=== PATIENT | male | born 1980 | race Caucasian/White ===

== ENCOUNTER 2016-11-08 10:45 | Emergency (ER) | payer OTHER ==
[2016-11-08 10:59] VITALS: BP 139/90; PULSE 92; RESP 20; TEMP 98
--- NOTE | 2016-11-08 11:40 | ED ---
Upper Extremity HPI - General Chief Complaint: Extremity Injury, Upper Stated Complaint: hand pain,fall Time Seen by Provider: 11/08/16 11:14 Source: patient, RN notes reviewed Mode of arrival: ambulatory Limitations: no limitations - History of Present Illness Initial Comments: 36-year-old male presents emergency Department chief complaint of right hand pain. Patient states his fell last night. Patient states he has right hand pain and [id number]. Patient denies any other injuries. Denies any head injury, LOC. Patient states she's had no prior fractures. Patient offers no complains. Place: home - Related Data Home Medications Medication Instructions Recorded Confirmed Albuterol Inhaler [Ventolin Hfa 1 - 2 puff INHALATION RT-Q6H PRN 06/21/16 Inhaler] amLODIPine [Norvasc] 10 mg PO DAILY 06/21/16 06/21/16 Previous Rx's Medication Instructions Recorded Famotidine [Pepcid] 20 mg PO DAILY #30 tablet 06/21/16 Hydrocodone/Acetaminophen [[place] 1 each PO Q6HR PRN #10 tab 06/21/16 5-325] Ondansetron Odt [Zofran ODT] 4 mg PO Q8HR PRN #5 tab 06/21/16 chlordiazePOXIDE HCl [Librium] 25 mg PO QID #20 capsule 06/21/16 Allergies Allergy/AdvReac Type Severity Reaction Status Date / Time No Known Allergies Allergy Verified 11/08/16 10:59 Review of Systems ROS Statement: Those systems with pertinent positive or pertinent negative responses have been documented in the HPI. ROS Other: All systems not noted in ROS Statement are negative. Past Medical History Past Medical History: Asthma, Hypertension History of Any Multi-Drug Resistant Organisms: None Reported Past Surgical History: No Surgical Hx Reported Past Psychological History: No Psychological Hx Reported Smoking Status: Current every day smoker Past Alcohol Use History: Occasional Past Drug Use History: Marijuana General Exam Limitations: no limitations General appearance: alert, in no apparent distress Head exam: Present: atraumatic, normocephalic, normal inspection Respiratory exam: Present: normal lung sounds bilaterally. Absent: respiratory distress, wheezes, rales, rhonchi, stridor Cardiovascular Exam: Present: regular rate, normal rhythm, normal heart sounds. Absent: systolic murmur, diastolic murmur, rubs, gallop, clicks Extremities exam: Present: other (Right hand there is moderate swelling, tenderness palpation, neurovascular intact there is no forearm tenderness.) Course Vital Signs 11/08/16 10:57 Temperature 98.0 F Pulse Rate 92 Respiratory 20 Rate Blood Pressure 139/90 O2 Sat by Pulse 98 Oximetry Procedures - Orthopedic Splinting/Casting Injury #1 Side: right Upper Extremity Injury Location: hand Upper Extremity Immobilizer: volar splint (Short neurovascular intact before and after procedure) Medical Decision Making - Medical Decision Making 36-year-old male presented for right hand pain. Patient has fracture at the base of fifth metacarpal. Patient will be splinted, follow-up with orthopedics on-call. Return parameters were discussed. Disposition Clinical Impression: Right hand fracture Disposition: HOME SELF-CARE Condition: Stable Instructions: Hand Fracture (ED) Additional Instructions: Please return to the Emergency Department if symptoms worsen or any other concerns. Referrals: None,Stated [Primary Care Provider] - 1-2 days Angelica Kelley DO [Doctor of Osteopathic Medicine] - 1-2 days Time of Disposition: 11:51
--- NOTE | 2016-11-08 11:53 | XR ---
EXAMINATION TYPE: XR hand complete RT DATE OF EXAM: 11/08/2016 11:47 AM CLINICAL HISTORY: Fall injury with pain. TECHNIQUE: Frontal, lateral and oblique images of the right hand are obtained. COMPARISON: None. FINDINGS: Incomplete extension of phalanges is noted making evaluation slightly suboptimal seen best on frontal and oblique images there is nondisplaced comminuted intra-articular fracture base of fifth metacarpal. The joint spaces in the right hand appear within normal limits. The overlying soft tiss ue appears unremarkable. IMPRESSION: There is acute comminuted nondisplaced intra-articular fracture base of fifth metacarpal . (Initial encounter close type post traumatic fracture)
[2016-11-08] MEDS ORDERED: IBUPROFEN 600 MG TAB PO STA (12:11)
== END 2016-11-08 12:20 | disposition home or self-care (01) ==
LOC: EC 10:45
DX: S62.316A Displaced fracture of base of fifth metacarpal bone, right hand, initial encounter for closed fracture (principal); W19.XXXA Unspecified fall, initial encounter; I10 Essential (primary) hypertension; F17.200 Nicotine dependence, unspecified, uncomplicated
CPT/HCPCS: 29125; 99284

== ENCOUNTER 2017-01-08 09:49 | Emergency (ER) | payer OTHER ==
--- NOTE | 2017-01-08 10:42 | ED ---
General Adult HPI - General Chief complaint: Upper Respiratory Infection Stated complaint: congestion Time Seen by Provider: 01/08/17 10:11 Source: patient Mode of arrival: ambulatory Limitations: no limitations - History of Present Illness Initial comments: 36-year-old male onset of upper respiratory infection 2 weeks ago with cough sore throat no hoarseness seems to be getting worse no shortness breath no wheezing history of asthma and history of hypertension. No chest pain no nausea no vomiting no diarrhea feels very weak - Related Data Home Medications Medication Instructions Recorded Confirmed Albuterol Inhaler [Ventolin Hfa 1 - 2 puff INHALATION RT-Q6H PRN 06/21/16 Inhaler] amLODIPine [Norvasc] 10 mg PO DAILY 06/21/16 06/21/16 Previous Rx's Medication Instructions Recorded Famotidine [Pepcid] 20 mg PO DAILY #30 tablet 06/21/16 Hydrocodone/Acetaminophen [[place] 1 each PO Q6HR PRN #10 tab 06/21/16 5-325] Ondansetron Odt [Zofran ODT] 4 mg PO Q8HR PRN #5 tab 06/21/16 chlordiazePOXIDE HCl [Librium] 25 mg PO QID #20 capsule 06/21/16 Levofloxacin [Levaquin] 500 mg PO DAILY #7 tab 01/08/17 Allergies Allergy/AdvReac Type Severity Reaction Status Date / Time No Known Allergies Allergy Verified 01/08/17 10:01 Review of Systems ROS Statement: Those systems with pertinent positive or pertinent negative responses have been documented in the HPI. ROS Other: All systems not noted in ROS Statement are negative. Constitutional: Denies: fever Eyes: Denies: eye pain ENT: Reports: throat pain. Denies: ear pain Respiratory: Reports: cough Cardiovascular: Denies: chest pain Gastrointestinal: Denies: abdominal pain Genitourinary: Denies: frequency Skin: Denies: rash Neurological: Denies: headache Psychiatric: Denies: anxiety, depression Hematological/Lymphatic: Denies: easy bleeding, easy bruising, swollen glands Past Medical History Past Medical History: Asthma, Hypertension History of Any Multi-Drug Resistant Organisms: None Reported Past Surgical History: No Surgical Hx Reported Past Psychological History: No Psychological Hx Reported Smoking Status: Current every day smoker Past Alcohol Use History: Occasional Past Drug Use History: Marijuana General Exam Limitations: no limitations General appearance: alert, in no apparent distress Eye exam: Present: normal appearance, PERRL ENT exam: Present: normal oropharynx, mucous membranes moist, TM's normal bilaterally, other (throat red) Neck exam: Present: normal inspection Respiratory exam: Present: normal lung sounds bilaterally Cardiovascular Exam: Present: regular rate, tachycardia, normal heart sounds GI/Abdominal exam: Present: soft, normal bowel sounds. Absent: tenderness Neurological exam: Present: alert, CN II-XII intact Psychiatric exam: Present: normal affect, normal mood Skin exam: Present: warm, dry Course Vital Signs 01/08/17 01/08/17 09:59 10:55 Temperature 98.0 F 99.0 F Pulse Rate 108 H Respiratory 20 Rate Blood Pressure 139/84 O2 Sat by Pulse 98 Oximetry Medical Decision Making - Lab Data Result diagrams: 01/08/17 10:35 01/08/17 10:35 Lab Results 01/08/17 01/08/17 Range/Units 10:35 10:35 WBC 4.2 (3.8-10.6) k/uL RBC 4.45 (4.30-5.90) m/uL Hgb 15.7 (13.0-17.5) gm/dL Hct 44.4 (39.0-53.0) % MCV 99.7 (80.0-100.0) fL MCH 35.3 H (25.0-35.0) pg MCHC 35.4 (31.0-37.0) g/dL RDW 12.4 (11.5-15.5) % Plt Count 201 (150-450) k/uL Neutrophils % 61 % Lymphocytes % 28 % Monocytes % 5 % Eosinophils % 3 % Basophils % 1 % Neutrophils # 2.5 (1.3-7.7) k/uL Lymphocytes # 1.2 (1.0-4.8) k/uL Monocytes # 0.2 (0-1.0) k/uL Eosinophils # 0.1 (0-0.7) k/uL Basophils # 0.1 (0-0.2) k/uL Sodium 142 (137-145) mmol/L Potassium 3.5 (3.5-5.1) mmol/L Chloride 105 (98-107) mmol/L Carbon Dioxide 24 (22-30) mmol/L Anion Gap 13 mmol/L BUN 7 L (9-20) mg/dL Creatinine 0.78 (0.66-1.25) mg/dL Est GFR (MDRD) Af Amer >60 (>60 ml/min/1.73 sqM) Est GFR (MDRD) Non-Af >60 (>60 ml/min/1.73 sqM) Glucose 98 (74-99) mg/dL Calcium 8.8 (8.4-10.2) mg/dL - Radiology Data Radiology results: report reviewed Chest x-ray no infiltrate Disposition Clinical Impression: Acute laryngitis Disposition: HOME SELF-CARE Condition: Fair Additional Instructions: Off work until 01/10/2017, return if worse, if not improving see her doctor on Tuesday before returning to work Prescriptions: Levofloxacin [Levaquin] 500 mg PO DAILY #7 tab Referrals: Monica Lobato MD [Primary Care Provider] - 1-2 days Time of Disposition: 12:06
--- NOTE | 2017-01-08 10:52 | XR ---
EXAMINATION TYPE: XR chest 2V DATE OF EXAM: 01/08/2017 10:45 AM COMPARISON: NONE TECHNIQUE: PA and lateral views submitted. HISTORY: cough FINDINGS: The lungs are clear and there is no pneumothorax, pleural effusion, or focal pneumonia. IMPRESSION: 1. No acute process.
[2017-01-08 10:53] LABS: Basophils # (A) 0.1 k/uL (0-0.2); Basophils % (A) 1 %; CH 36.5; CHCM 36.7; Eosinophils # (A) 0.1 k/uL (0-0.7); Eosinophils % (A) 3 %; HCT 44.4 % (39.0-53.0); HDW 2.56; HGB 15.7 gm/dL (13.0-17.5); Luc # (Auto) 0.12; Luc % (Auto) 3; Lymphocytes # (A) 1.2 k/uL (1.0-4.8); Lymphocytes % (A) 28 %; MCH 35.3 pg (25.0-35.0); MCHC 35.4 g/dL (31.0-37.0); MCV 99.7 fL (80.0-100.0); Mean Platelet Volume 7.5; Monocytes # (A) 0.2 k/uL (0-1.0); Monocytes % (A) 5 %; Neutrophils # (A) 2.5 k/uL (1.3-7.7); Neutrophils % (A) 61 %; RBC 4.45 m/uL (4.30-5.90); RDW 12.4 % (11.5-15.5); WBC 4.2 k/uL (3.8-10.6); WBC (Perox) 3.87
[2017-01-08 10:56] LABS: Anion Gap 13 mmol/L; Blood Urea Nitrogen 7 mg/dL (9-20); Calcium 8.8 mg/dL (8.4-10.2); Carbon Dioxide 24 mmol/L (22-30); Chloride 105 mmol/L (98-107); Glucose 98 mg/dL (74-99); Non-African American GFR(MDRD) >60 (>60 ml/min/1.73 sqM); Potassium 3.5 mmol/L (3.5-5.1); Sodium 142 mmol/L (137-145)
[2017-01-08] MEDS ORDERED: methylPREDNISolone SOD SUCCI 125 MG/2 ML VIAL IV STA (11:08)
[2017-01-08 12:39] VITALS: BP 147/88; PULSE 95; RESP 16; TEMP 98.9
== END 2017-01-08 12:38 | disposition home or self-care (01) ==
LOC: EC 09:49
DX: J04.0 Acute laryngitis (principal); I10 Essential (primary) hypertension; F17.200 Nicotine dependence, unspecified, uncomplicated; Z79.899 Other long term (current) drug therapy
CPT/HCPCS: 99283; 96365; 96375; 36415; 80048; 85025; 71020; J2930; J0696

== ENCOUNTER 2017-03-12 09:22 | Emergency (ER) | payer OTHER ==
[2017-03-12] MEDS ORDERED: SODIUM CHLORIDE 0.9% 1,000 ML IV ONE ×2 (09:49→11:30)
[2017-03-12] MEDS ORDERED: HYDROmorphone 1 MG/ML 1 ML SYRINGE IVP STA ×2 (09:54→12:12)
--- NOTE | 2017-03-12 09:57 | ED ---
Abdominal Pain HPI - General Chief Complaint: Abdominal Pain Stated Complaint: pancreatitis Time Seen by Provider: 03/12/17 09:38 Source: patient, RN notes reviewed Mode of arrival: ambulatory Limitations: no limitations - History of Present Illness Initial Comments: Patient is a 36-year-old male presents emergency room for evaluation abdominal pain. Patient states he has a history of pancreatitis from alcohol abuse when he was younger. Patient states he has a pancreatitis flareup every time he is stressed out. Patient states he broke up with his girlfriend 2 days ago which is causing him to be stress. Patient states began developing dull abdominal pain about 2 days ago that is worse in significantly this morning. Patient states every time 10 constant pain in his left upper quadrant. Patient states this feels exactly like a pancreatitis attack. Patient denies nausea or vomiting. Patient denies diarrhea, patient. Patient denies pain or burning during urination, trouble urinating or blood in urine. Patient denies any back pain. Patient denies fevers or chills. - Related Data Home Medications Medication Instructions Recorded Confirmed amLODIPine [Norvasc] 10 mg PO DAILY 06/21/16 03/12/17 Albuterol Inhaler [Ventolin Hfa 1 - 2 puff INHALATION QID PRN 03/12/17 03/12/17 Inhaler] Previous Rx's Medication Instructions Recorded Famotidine [Pepcid] 20 mg PO DAILY #30 tablet 06/21/16 HYDROcodone/APAP 5-325MG [[place] 1 tab PO Q6HR PRN #12 tab 03/12/17 5-325] Allergies Allergy/AdvReac Type Severity Reaction Status Date / Time No Known Allergies Allergy Verified 03/12/17 11:39 Review of Systems ROS Statement: Those systems with pertinent positive or pertinent negative responses have been documented in the HPI. ROS Other: All systems not noted in ROS Statement are negative. Past Medical History Past Medical History: Asthma, Hypertension Additional Past Medical History / Comment(s): pancreatitis History of Any Multi-Drug Resistant Organisms: None Reported Past Surgical History: No Surgical Hx Reported Past Psychological History: No Psychological Hx Reported Smoking Status: Current every day smoker Past Alcohol Use History: Occasional Past Drug Use History: Marijuana General Exam - General Exam Comments Initial Comments: laying in exam room, mild distress secondary to pain Limitations: no limitations General appearance: alert, anxious Head exam: Present: atraumatic, normocephalic, normal inspection Eye exam: Present: normal appearance ENT exam: Present: normal exam Neck exam: Present: normal inspection Respiratory exam: Present: normal lung sounds bilaterally. Absent: respiratory distress Cardiovascular Exam: Present: normal rhythm, tachycardia, normal heart sounds GI/Abdominal exam: Present: soft, tenderness (left upper quadrant, upper midepigastric), normal bowel sounds. Absent: distended, guarding, rebound, rigid Extremities exam: Present: normal inspection Back exam: Present: normal inspection Neurological exam: Present: alert, oriented X3, CN II-XII intact, normal gait Psychiatric exam: Present: normal affect, normal mood Skin exam: Present: warm, dry, intact, normal color. Absent: rash Course Vital Signs 03/12/17 03/12/17 03/12/17 09:27 10:15 11:39 Temperature 97.9 F 97.7 F Pulse Rate 118 H 108 H 86 Respiratory 22 18 18 Rate Blood Pressure 171/87 155/105 146/77 O2 Sat by Pulse 98 99 95 Oximetry 03/12/17 13:21 Temperature 97.6 F Pulse Rate 82 Respiratory 16 Rate Blood Pressure 153/86 O2 Sat by Pulse 98 Oximetry Medical Decision Making - Medical Decision Making Patient is a 36-year-old female since emergency room for reduction of abdominal pain. Patient has a history of pancreatitis. Patient's lipase slightly elevated. Liver enzymes elevated from labs taken in the past. Ultrasound of right upper quadrant negative for cholecystitis or cholelithiasis. Patient states feeling better after pain medications, nausea medications and fluids. Will send patient home and advised him to return for worsening symptoms. Patient states he understands everything that was discussed with him. Case discussed Dr. Staples. - Lab Data Result diagrams: 03/12/17 09:45 03/12/17 09:45 Lab Results 03/12/17 03/12/17 03/12/17 Range/Units 09:45 09:45 11:33 WBC 8.8 (3.8-10.6) k/uL RBC 4.52 (4.30-5.90) m/uL Hgb 16.1 (13.0-17.5) gm/dL Hct 44.5 (39.0-53.0) % MCV 98.6 (80.0-100.0) fL MCH 35.7 H (25.0-35.0) pg MCHC 36.3 (31.0-37.0) g/dL RDW 12.0 (11.5-15.5) % Plt Count 194 (150-450) k/uL Neutrophils % 80 % Lymphocytes % 14 % Monocytes % 4 % Eosinophils % 1 % Basophils % 1 % Neutrophils # 7.0 (1.3-7.7) k/uL Lymphocytes # 1.2 (1.0-4.8) k/uL Monocytes # 0.3 (0-1.0) k/uL Eosinophils # 0.1 (0-0.7) k/uL Basophils # 0.0 (0-0.2) k/uL Hyperchromasia Slight Sodium 141 (137-145) mmol/L Potassium 3.8 (3.5-5.1) mmol/L Chloride 108 H (98-107) mmol/L Carbon Dioxide 20 L (22-30) mmol/L Anion Gap 13 mmol/L BUN 9 (9-20) mg/dL Creatinine 0.70 (0.66-1.25) mg/dL Est GFR (MDRD) Af Amer >60 (>60 ml/min/1.73 sqM) Est GFR (MDRD) Non-Af >60 (>60 ml/min/1.73 sqM) Glucose 93 (74-99) mg/dL Calcium 9.2 (8.4-10.2) mg/dL Magnesium 1.6 (1.6-2.3) mg/dL Total Bilirubin 1.4 H (0.2-1.3) mg/dL AST 111 H (17-59) U/L ALT 102 H (21-72) U/L Alkaline Phosphatase 57 (38-126) U/L Total Protein 7.0 (6.3-8.2) g/dL Albumin 4.5 (3.5-5.0) g/dL Amylase 72 (30-110) U/L Lipase 681 H (23-300) U/L - Radiology Data Radiology results: report reviewed, image reviewed Disposition Clinical Impression: Abdominal pain Disposition: HOME SELF-CARE Condition: Good Instructions: Abdominal Pain (ED) Additional Instructions: Take pain medications as needed. Please follow up with primary care provider in 1-2 days. If any new symptom arises or symptoms worsen, return to ER as soon as possible. Prescriptions: HYDROcodone/APAP 5-325MG [[place] 5-325] 1 tab PO Q6HR PRN #12 tab PRN Reason: Pain Referrals: Monica Lobato MD [Primary Care Provider] - 1-2 days Time of Disposition: 13:00
[2017-03-12 10:14] LABS: ALT 102 U/L (21-72); AST 111 U/L (17-59); Alkaline Phosphatase 57 U/L (38-126); Amylase 72 U/L (30-110); Anion Gap 13 mmol/L; Blood Urea Nitrogen 9 mg/dL (9-20); Calcium 9.2 mg/dL (8.4-10.2); Carbon Dioxide 20 mmol/L (22-30); Chloride 108 mmol/L (98-107); Glucose 93 mg/dL (74-99); Non-African American GFR(MDRD) >60 (>60 ml/min/1.73 sqM); Potassium 3.8 mmol/L (3.5-5.1); Sodium 141 mmol/L (137-145); Total Bilirubin 1.4 mg/dL (0.2-1.3)
[2017-03-12 10:15] LABS: Basophils % (A) 1 %; CHCM 37.7; Eosinophils # (A) 0.1 k/uL (0-0.7); Eosinophils % (A) 1 %; HCT 44.5 % (39.0-53.0); HDW 2.62; HGB 16.1 gm/dL (13.0-17.5); Hyperchromasia Slight; Luc # (Auto) 0.07; Luc % (Auto) 1; Lymphocytes # (A) 1.2 k/uL (1.0-4.8); Lymphocytes % (A) 14 %; MCH 35.7 pg (25.0-35.0); MCHC 36.3 g/dL (31.0-37.0); MCV 98.6 fL (80.0-100.0); Mean Platelet Volume 6.6; Monocytes # (A) 0.3 k/uL (0-1.0); Monocytes % (A) 4 %; Neutrophils % (A) 80 %; RBC 4.52 m/uL (4.30-5.90); WBC 8.8 k/uL (3.8-10.6); WBC (Perox) 9.02
[2017-03-12] MEDS ORDERED: ONDANSETRON 4 MG/2 ML VIAL IVP STA (10:21)
--- NOTE | 2017-03-12 11:08 | US ---
EXAMINATION TYPE: US abdomen limited DATE OF EXAM: 03/12/2017 10:48 AM COMPARISON: NONE CLINICAL HISTORY: Pain. ABD pain, pt states h/o pancreatitis and ETOH abuse EXAM MEASUREMENTS: Liver Length: 20.2 cm Gallbladder Wall: 0.2 cm CBD: 0.3 cm Right Kidney: 11.7 x 5.4 x 5.9 cm Very gassy patient, images best obtained in LLD position/ pt also moving during exam Pancreas: body wnl, head and tail gassed out Liver: Enlarged, heterogeneous, difficult to penetrate Gallbladder: wnl Evidence for sonographic Bhagat's sign: No CBD: wnl Right Kidney: wnl IMPRESSION: 1. Hepatomegaly with probable underlying fatty hepatic infiltration.
[2017-03-12 13:22] VITALS: BP 153/86; PULSE 82; RESP 16; TEMP 97.6
== END 2017-03-12 13:48 | disposition home or self-care (01) ==
LOC: EC 09:22
DX: R10.12 Left upper quadrant pain (principal); R74.8 Abnormal levels of other serum enzymes; R10.816 Epigastric abdominal tenderness; R00.0 Tachycardia, unspecified; I10 Essential (primary) hypertension; F17.200 Nicotine dependence, unspecified, uncomplicated; Z79.899 Other long term (current) drug therapy
CPT/HCPCS: 36415; 80053; 82150; 83690; 83735; 85025; 76705; 99284; 96374; 96376; 96375; 96361 ×2; J2405; J1170

== ENCOUNTER 2017-03-14 03:03 | Observation (INO) | payer OTHER ==
[2017-03-14] MEDS ORDERED: HYDROmorphone 1 MG/ML 1 ML SYRINGE IVP STA ×2 (03:18→03:30)
[2017-03-14] MEDS ORDERED: SODIUM CHLORIDE 0.9% 2,000 ML IV STA (03:18)
[2017-03-14] MEDS ORDERED: ONDANSETRON 4 MG/2 ML VIAL IVP STA (03:19)
--- NOTE | 2017-03-14 03:34 | ED ---
Abdominal Pain HPI - General Source: patient, RN notes reviewed, old records reviewed Mode of arrival: ambulatory Limitations: no limitations <Doris Holt - Last Filed: 03/14/17 04:04> <Swapnil Collazo - Last Filed: 03/14/17 04:49> - General Chief Complaint: Abdominal Pain Stated Complaint: abd pain Time Seen by Provider: 03/14/17 03:17 - History of Present Illness Initial Comments: This is a 36-year-old male for revisit for left upper quadrant abdominal pain. Patient reports that he was seen 2 days ago and states that this pain was similar to previous pancreatitis episode. Patient states he has no nausea. He just reports a sharp pain in the left upper quadrant they'll radiate to his back.. He states that they will be constant but will occasionally be more intense with certain movements. Patient denies any diarrhea or melena or constipation. Patient states that he is not able to get comfortable. He denies any history of kidney stones or hematuria. Patient reports that he has had a history of pancreatitis when he was younger. Denies any recent drug or alcohol use. (Doris Holt) - Related Data Home Medications Medication Instructions Recorded Confirmed amLODIPine [Norvasc] 10 mg PO DAILY 06/21/16 03/14/17 Albuterol Inhaler [Ventolin Hfa 1 - 2 puff INHALATION QID PRN 03/12/17 03/14/17 Inhaler] Previous Rx's Medication Instructions Recorded Famotidine [Pepcid] 20 mg PO DAILY #30 tablet 06/21/16 Allergies Allergy/AdvReac Type Severity Reaction Status Date / Time No Known Allergies Allergy Verified 03/14/17 03:11 Review of Systems ROS Other: All systems not noted in ROS Statement are negative. <Doris Holt - Last Filed: 03/14/17 04:04> ROS Other: All systems not noted in ROS Statement are negative. <Swapnil Collazo - Last Filed: 03/14/17 04:49> ROS Statement: Those systems with pertinent positive or pertinent negative responses have been documented in the HPI. Past Medical History Past Medical History: Asthma, Hypertension Additional Past Medical History / Comment(s): pancreatitis History of Any Multi-Drug Resistant Organisms: None Reported Past Surgical History: No Surgical Hx Reported Past Psychological History: No Psychological Hx Reported Smoking Status: Current every day smoker Past Alcohol Use History: Occasional Past Drug Use History: Marijuana <Doris Holt - Last Filed: 03/14/17 04:04> General Exam Limitations: no limitations General appearance: alert, in no apparent distress Head exam: Present: atraumatic, normocephalic, normal inspection Eye exam: Present: normal appearance, PERRL, EOMI. Absent: scleral icterus, conjunctival injection, periorbital swelling ENT exam: Present: normal exam, mucous membranes moist Neck exam: Present: normal inspection. Absent: tenderness, meningismus, lymphadenopathy Respiratory exam: Present: normal lung sounds bilaterally. Absent: respiratory distress, wheezes, rales, rhonchi, stridor Cardiovascular Exam: Present: regular rate, normal rhythm, normal heart sounds. Absent: systolic murmur, diastolic murmur, rubs, gallop, clicks GI/Abdominal exam: Present: soft, tenderness (Patient is tender and guarding the left upper quadrant.), guarding, normal bowel sounds. Absent: distended, rebound, rigid Extremities exam: Present: normal inspection, full ROM, normal capillary refill. Absent: tenderness, pedal edema, joint swelling, calf tenderness Back exam: Present: normal inspection Neurological exam: Present: alert, oriented X3, CN II-XII intact Psychiatric exam: Present: normal affect, normal mood Skin exam: Present: warm, dry, intact, normal color. Absent: rash <Doris Holt - Last Filed: 03/14/17 04:04> <Swapnil Collazo - Last Filed: 03/14/17 04:49> - General Exam Comments Initial Comments: This is a 36-year-old male. Patient does appear to be in significant discomfort. patient is clutching the left upper quadrant. (Doris Holt) Course <Doris Holt - Last Filed: 03/14/17 04:04> <Swapnil Collazo - Last Filed: 03/14/17 04:49> Vital Signs 03/14/17 03:07 Temperature 97.9 F Pulse Rate 102 H Respiratory 24 Rate Blood Pressure 152/96 O2 Sat by Pulse 98 Oximetry - Reevaluation(s) Reevaluation #1: 03/14/17 03:59 At 4am and patient's care will be transferred over to Dr. Collazo. (Doris Holt) Medical Decision Making - Lab Data Result diagrams: 03/14/17 03:20 03/14/17 03:20 <Doris Holt - Last Filed: 03/14/17 04:04> - Lab Data Result diagrams: 03/14/17 03:20 03/14/17 03:20 - Radiology Data Radiology results: image reviewed (Abdominal x-ray is limited. There are some air-fluid levels.) <Swapnil Collazo - Last Filed: 03/14/17 04:49> - Medical Decision Making patient reevaluated and has continued discomfort. Abdomen has mild to moderate diffuse tenderness to palpation. Patient updated on results and plan. Case was discussed in detail with Dr. Celestin, who will admit for Dr. Mtz. Computed tomography scan will be ordered. (Swapnil Collazo) - Lab Data Lab Results 03/14/17 03/14/17 03/14/17 Range/Units 03:20 03:20 03:50 WBC 5.6 (3.8-10.6) k/uL RBC 4.80 (4.30-5.90) m/uL Hgb 17.1 (13.0-17.5) gm/dL Hct 48.2 (39.0-53.0) % MCV 100.5 H (80.0-100.0) fL MCH 35.6 H (25.0-35.0) pg MCHC 35.4 (31.0-37.0) g/dL RDW 12.5 (11.5-15.5) % Plt Count 161 (150-450) k/uL Neutrophils % 69 % Lymphocytes % 21 % Monocytes % 5 % Eosinophils % 3 % Basophils % 0 % Neutrophils # 3.9 (1.3-7.7) k/uL Lymphocytes # 1.2 (1.0-4.8) k/uL Monocytes # 0.3 (0-1.0) k/uL Eosinophils # 0.2 (0-0.7) k/uL Basophils # 0.0 (0-0.2) k/uL Sodium 137 (137-145) mmol/L Potassium 3.7 (3.5-5.1) mmol/L Chloride 102 (98-107) mmol/L Carbon Dioxide 24 (22-30) mmol/L Anion Gap 11 mmol/L BUN 9 (9-20) mg/dL Creatinine 0.80 (0.66-1.25) mg/dL Est GFR (MDRD) Af Amer >60 (>60 ml/min/1.73 sqM) Est GFR (MDRD) Non-Af >60 (>60 ml/min/1.73 sqM) Glucose 102 H (74-99) mg/dL Calcium 9.8 (8.4-10.2) mg/dL Total Bilirubin 1.4 H (0.2-1.3) mg/dL AST 70 H (17-59) U/L ALT 89 H (21-72) U/L Alkaline Phosphatase 51 (38-126) U/L Total Protein 7.3 (6.3-8.2) g/dL Albumin 4.7 (3.5-5.0) g/dL Amylase 79 (30-110) U/L Lipase 693 H (23-300) U/L Urine Color Yellow Urine Appearance Clear (Clear) Urine pH 6.0 (5.0-8.0) Ur Specific [place] 1.011 (1.001-1.035) Urine Protein Trace H (Negative) Urine Glucose (UA) Negative (Negative) Urine Ketones Negative (Negative) Urine Blood Negative (Negative) Urine Nitrite Negative (Negative) Urine Bilirubin Negative (Negative) Urine Urobilinogen <2.0 (<2.0) mg/dL Ur Leukocyte Esterase Negative (Negative) Disposition <Doris Holt - Last Filed: 03/14/17 04:04> Time of Disposition: 04:49 <Swapnil Collazo - Last Filed: 03/14/17 04:49> Clinical Impression: Pancreatitis, Abdominal pain Disposition: ADMITTED IP TO THIS HOSP
[2017-03-14 03:36] LABS: Basophils % (A) 0 %; CH 37.3; CHCM 37.3; Eosinophils # (A) 0.2 k/uL (0-0.7); Eosinophils % (A) 3 %; HCT 48.2 % (39.0-53.0); HDW 2.47; HGB 17.1 gm/dL (13.0-17.5); Luc # (Auto) 0.08; Luc % (Auto) 2; Lymphocytes # (A) 1.2 k/uL (1.0-4.8); Lymphocytes % (A) 21 %; MCH 35.6 pg (25.0-35.0); MCHC 35.4 g/dL (31.0-37.0); MCV 100.5 fL (80.0-100.0); Monocytes # (A) 0.3 k/uL (0-1.0); Monocytes % (A) 5 %; Neutrophils # (A) 3.9 k/uL (1.3-7.7); Neutrophils % (A) 69 %; RDW 12.5 % (11.5-15.5); WBC 5.6 k/uL (3.8-10.6); WBC (Perox) 5.44
[2017-03-14 03:41] LABS: ALT 89 U/L (21-72); AST 70 U/L (17-59); Alkaline Phosphatase 51 U/L (38-126); Amylase 79 U/L (30-110); Anion Gap 11 mmol/L; Blood Urea Nitrogen 9 mg/dL (9-20); Calcium 9.8 mg/dL (8.4-10.2); Carbon Dioxide 24 mmol/L (22-30); Chloride 102 mmol/L (98-107); Glucose 102 mg/dL (74-99); Non-African American GFR(MDRD) >60 (>60 ml/min/1.73 sqM); Potassium 3.7 mmol/L (3.5-5.1); Sodium 137 mmol/L (137-145); Total Bilirubin 1.4 mg/dL (0.2-1.3); Total Protein 7.3 g/dL (6.3-8.2)
[2017-03-14 04:04] LABS: Appearance,Urine Clear (Clear); Bilirubin,Urine Negative (Negative); Glucose,Urine (UA) Negative (Negative); Ketones,Urine Negative (Negative); Leukocyte Esterase,Urine Negative (Negative); Nitrite,Urine Negative (Negative); Protein,Urine Trace (Negative); Specific Gravity,Urine 1.011 (1.001-1.035); UA Billing (MACRO vs. MICRO) CHEM; Urobilinogen,Urine <2.0 mg/dL (<2.0)
--- NOTE | 2017-03-14 04:32 | XR ---
ADDENDUM - Added by Brendan Mckeon M.D. on 03/14/2017 5:20 AM (-04:00) A second upright view of the lower chest and upper abdomen was provided. No free air is identified. There are again scattered air-fluid levels present involving portions of the colon and one or more small bowel loops in the upper and mid abdomen, that may be on the basis of ongoing obstruction versus ileus. This could be correlated clinically; CT scanning could be considered for further assessment. EXAM: XR Abdomen, 1 View CLINICAL HISTORY: Reason: abdominal pain TECHNIQUE: Single upright view of the mid-lower abdomen and pelvis. COMPARISON: 06/21/16 supine and upright images. FINDINGS: Lower thorax: Unable to fully evaluate for free air as this single upright view does not include the upper abdomen or diaphragms. Gastrointestinal tract: There are few scattered air-fluid levels present within small and large bowel loops in the mid abdomen, where included on this single view. There is some air and stool present in the colon including in the level the rectum. Bones/joints: The bones are stable. IMPRESSION: Very limited exam with single upright view provided that includes the mid and lower abdomen, and pelvis. There are a few scattered air-fluid levels that may be within small and large bowel, and are nonspecific. Correlate clinically. Additional images/projections could be obtained as could CT to further evaluate. [employer] 03/14/17 05:33 Verify Receipt Verified receipt with Ree in the ER, report handed to Dr. Collazo on 03/14 05:32 (-04:00)
[2017-03-14] MEDS ORDERED: RX INFO: IV CONTRAST WAS GIVEN 1 EACH MISC MISCELLANE PRN (04:46)
[2017-03-14] MEDS ORDERED: MORPHINE SULFATE 4 MG/ML SYRINGE IV STA (04:49)
[2017-03-14] MEDS ORDERED: PANTOPRAZOLE 40 MG/10 ML VIAL IVP STA (04:49)
[2017-03-14] MEDS ORDERED: NALOXONE 0.4 MG/ML 1 ML VIAL IV PRN (04:50)
[2017-03-14] MEDS ORDERED: ONDANSETRON 4 MG/2 ML VIAL IVP PRN (04:50)
[2017-03-14] MEDS: SODIUM CHLORIDE 0.9% 1,000 ML IV SCH ×2 (05:18→14:37)
--- NOTE | 2017-03-14 05:51 | CT ---
EXAM: CT Abdomen and Pelvis With Intravenous Contrast CLINICAL HISTORY: Reason: Upper abdominal pain. History of pancreatitis. TECHNIQUE: Axial computed tomography images of the abdomen and pelvis with intravenous contrast. CTDI is 31.10 mGy and DLP is 1216.10 mGy-cm This CT exam was performed using one or more of the following dose reduction techniques: automated exposure control, adjustment of the mA and/or kV according to patient size, and/or use of iterative reconstruction technique. COMPARISON: Current and prior 06/21/16 plain films; recent 03/12/17 right upper quadrant ultrasound FINDINGS: Lower thorax: No acute findings. ABDOMEN: Liver: There is again mild hepatomegaly and hepatic steatosis. Gallbladder and bile ducts: Incidental note is made of a gallbladder fold towards the level of the fundus, as on ultrasound. No calcified stones. No ductal dilation. Pancreas: Peripancreatic stranding is seen centered about the pancreatic head region that itself appears to be mildly edematous. There is mild stranding extending inferiorly within the retroperitoneum, and alongside the mid and distal duodenum. Elsewhere, there is a 9-10 mm calcification along the anterior aspect of the pancreatic tail. No ductal dilation. Spleen: Unremarkable. No splenomegaly. Adrenals: Unremarkable. No mass. Kidneys and ureters: Unremarkable. No solid mass. No hydronephrosis. Stomach and bowel: No evidence of intestinal obstruction. Appendix: No findings to suggest acute appendicitis. PELVIS: Bladder: Unremarkable. No mass. Reproductive: Unremarkable as visualized. ABDOMEN and PELVIS: Intraperitoneal space: No free air. No significant fluid collection. Bones/joints: Multilevel degenerative changes, greatest at the L5-S1 level. Slight anterior loss of height at T11 and T12 appear chronic. Vasculature: No abdominal aortic aneurysm. Lymph nodes: No adenopathy is seen. IMPRESSION: 1. The findings are most suggestive of acute pancreatitis involving the pancreatic head. There is peripancreatic stranding, a portion of which involves the adjacent duodenum, without evidence of a loculated drainable fluid collection nor pedro pancreatic necrosis seen at this time. 2. Nonspecific 9-10 mm calcification within the pancreatic tail, that is unchanged compared to the earlier abdominal plain films, and may be the result of previous pancreatitis. This finding could be reassessed on future follow-up in order to ensure stability. 3. Additional findings as above includes mild hepatomegaly and hepatic steatosis.
[2017-03-14] MEDS: HYDROmorphone 1 MG/ML 1 ML SYRINGE IV PRN ×3 (08:03→14:37)
[2017-03-14] MEDS ORDERED: PANTOPRAZOLE 40 MG/10 ML VIAL IV SCH (09:00)
[2017-03-14 09:06] VITALS: RESP 16
[2017-03-14 09:36] VITALS: PULSE 64
[2017-03-14 14:56] VITALS: BMI 34.0
[2017-03-14 15:45] VITALS: BP 132/71; TEMP 98.3
--- NOTE | 2017-03-15 07:17 | HP ---
DATE OF ADMISSION: Chief complaint is abdominal pain. HISTORY OF ILLNESS: Mr. Tafoya is a 36-year-old male with a known history of pancreatitis, admitted to the hospital with left upper quadrant abdominal pain. Patient reports that he was seen 2 days ago and said his pain is similar to previous pancreatic episode. Patient otherwise denied any nausea or vomiting. Pain is sharp in the left upper quadrant and radiates to his back and is constant. Otherwise, patient denied any recent illness. No hematemesis or melena. Patient had last episode of pancreatitis about 6 months ago. Patient does have alcohol abuse, currently not drinking and last drink was about 2 weeks ago. Patient otherwise denied any history of gallstones and denied any recent drugs or alcohol use. Patient does have a history of pancreatitis initially started about 5 years ago. Patient does eat high-protein diet otherwise. REVIEW OF SYSTEMS: CONSTITUTIONAL: No fever. No chills. No weakness. RESPIRATORY: No cough or sputum production. CARDIOVASCULAR: No chest pain or short of breath. ABDOMEN: Patient does have abdominal pain, nausea, and no vomiting. No diarrhea. GENITOURINARY: No dysuria or hematuria. ENDOCRINE: Negative. PSYCHIATRIC: Negative. MUSCULOSKELETAL: Negative. All other 14-point review of systems negative except as above. PAST MEDICAL HISTORY: Hypertension, asthma, and history of pancreatitis. PAST SURGICAL HISTORY: None. SOCIAL HISTORY: Apparently an everyday smoker. Used to drink a lot and currently last drink was 2 weeks ago. Patient does use marijuana. FAMILY HISTORY: Denied any history of hypertension, diabetes mellitus or premature heart disease in the family. Allergies include none. HOME MEDICATIONS: 1. Norvasc. 2. Albuterol inhaler. PHYSICAL EXAMINATION: A 36-year-old male lying in the bed comfortably, awake, awake, alert, oriented x3. Appears in no apparent distress. VITALS: Blood pressure 152/96, pulse is 102, respirations 24, temperature afebrile, pulse ox 98% on room air. HEENT: Atraumatic, normocephalic. Neck is supple. No JVD. CVS EXAM: S1, S2 heard, no murmurs, no gallop, no rub. LUNGS: Bilateral air entry is present. No crackles, nonlabored breathing. Abdomen is soft, mild epigastric and left upper quadrant tenderness, bowel sounds are present, no guarding or rigidity. No palpable organomegaly. ADMINISTRATIVE FELLOW: Awake, alert and oriented x3. No focal neurologic deficit. Cranial nerves grossly intact. EXTREMITIES: No edema. Pulses palpable bilaterally, no clubbing or cyanosis. PSYCHIATRIC: Cooperative. LABORATORY DATA: WBC 5.8, hemoglobin 17.1, MCV 100.5, platelets 161, sodium 137, potassium 3.7, chloride 102, bicarb is 24. BUN 9, creatinine 0.8, blood sugar is 102, total bilirubin is 1.4, AST 70, ALT is 89, lipase level 693. KUB x-ray, very limited exam with a single upright view provided that includes the mid and lower abdomen and pelvis. There are a few scattered air-fluid levels that may be within the small and large bowel and are nonspecific. CT of the abdomen and pelvis showed most studies to show acute pancreatitis involving the pancreatic head. There is peripancreatic stranding, a portion of which involved the descending duodenum without evidence of loculated drainable fluid collection or pedro pancreatic necrosis seen at this time. Nonspecific ( ) 10 mm calcification with the pancreatic tail. IMPRESSION: 1. Acute and chronic pancreatitis. Pain improving at this time. 2. Hypertension. 3. History of asthma. 4. Alcohol abuse history. 5. Nicotine addiction. 6. Marijuana use. 7. Deep venous thrombosis prophylaxis. DISCUSSION AND PLAN: Patient will be continued on pain management with IV Dilaudid and continue with Zofran p.r.n. for nausea, vomiting. Continue with the IV fluids and continue to keep the patient n.p.o. until the pain improves and follow up closely. Further recommendations based on the clinical course. MTDD
--- NOTE | 2017-03-16 18:07 | DS ---
DATE OF ADMISSION: 03/14/2017 DATE OF DISCHARGE: 03/14/2017 DISCHARGE DIAGNOSES: 1. Acute on chronic pancreatitis, likely due to heavy protein diet. 2. Alcohol abuse history with recent alcohol use two weeks ago. 3. Nicotine addiction. 4. Asthma. 5. Hypertension. HOSPITAL COURSE: Mr. Tafoya is a 36-year-old male with known history of alcohol abuse and history of previous pancreatitis and also calcification in the pancreas due to chronic pancreatitis. Came to the hospital with complaints of left upper quadrant and epigastric abdominal pain radiating into the back and elevated lipase level. The patient was continued on treatment for acute pancreatitis with n.p.o. IV fluids and pain management and Zofran p.r.n. Patient did improve clinically and is tolerating p.o. diet which is advanced now. Otherwise, the patient wants to be discharged today and requesting prescription for Pepcid as well as Aquasco which will be given for a few days and advised to follow with the primary physician. Patient was counseled extensively for alcohol abuse and also addressed to eat a balanced diet and avoid high protein, high fat diet. Otherwise, the patient is stable for discharge home. DISCHARGE PHYSICAL EXAMINATION: 36 -year-old male lying in bed comfortably, awake, alert, oriented, x3. Appears to be in no apparent distress. VITALS: Blood pressure is 141/91, pulse is 64, respirations 16, temperature afebrile, pulse ox 97% on room air. HEENT: Atraumatic, normocephalic. NECK: Supple. No jugular venous distention. CVS: S1, S2 heard. No murmurs, no gallop, no rub. LUNGS: Bilateral air entry. No wheezing, no crackles. ABDOMEN: Soft, nontender. Bowel sounds present. CENTRAL NERVOUS SYSTEM: Awake, alert and oriented times three. No focal deficits. LABORATORY DATA: Reviewed. Discharge medications include: 1. Norvasc 10 mg p.o. daily. 2. Albuterol inhaler 1 to 2 puffs inhalation q.i.d. p.r.n. for short of breath and wheezing. 3. Famotidine 20 mg p.o. daily. 4. Aquasco 5/325 1 tablets p.o. q.6 hourly p.r.n. for pain. Activity as tolerated. Cardiac diet. Follow with Dr. Lobato in one to two days. [facility]PITALCaesar
== END 2017-03-14 16:00 | disposition home or self-care (01) ==
LOC: EC 03:03 → 5MS5E 04:50 → INTOOBSV 04:50 → 5MS5E 09:22
PROVIDERS: ADMIT Internal Medicine; ATTEND Internal Medicine
DX: K85.90 Acute pancreatitis without necrosis or infection, unspecified (principal); K86.1 Other chronic pancreatitis; I10 Essential (primary) hypertension; J45.909 Unspecified asthma, uncomplicated; F10.10 Alcohol abuse, uncomplicated; F12.90 Cannabis use, unspecified, uncomplicated; K76.0 Fatty (change of) liver, not elsewhere classified; F17.200 Nicotine dependence, unspecified, uncomplicated
CPT/HCPCS: 96376; 96361; 96374; 96375; 99285; 36415; 80053; 82150; 83690; 85025; 81003; 74000; 74177; G0378; J2270; J2405; J1170; Q9967; C9113

== ENCOUNTER 2017-06-24 18:53 | Emergency (ER) | payer OTHER ==
[2017-06-24 19:12] VITALS: BP 161/65; PULSE 86; RESP 18; TEMP 98.5
--- NOTE | 2017-06-24 19:28 | ED ---
General Adult HPI - General Chief complaint: Extremity Injury, Lower Stated complaint: ankle injury Time Seen by Provider: 06/24/17 19:20 Source: patient, RN notes reviewed Mode of arrival: wheelchair Limitations: no limitations - History of Present Illness Initial comments: 36-year-old male presents to the emergency department with a chief complaint of the left ankle pain. Patient states that he was swimming 2 days ago he got out noticed some pain to his left ankle he states he does continue bruising pain and increased pain with walking so he was concerned. Patient does not actually injuring the ankle. Patient states she just continues to have this discomfort. Patient denies any fever chills with this. Patient denies any nausea or vomiting. Patient was concerned due to his symptoms without that he should be evaluated. Patient denies any recent fever, chills, shortness of breath, chest pain, back pain, abdominal pain, nausea vomiting, numbness or tingling, dysuria or hematuria, constipation or diarrhea, headaches or visual changes, or any other current symptoms. - Related Data Home Medications Medication Instructions Recorded Confirmed amLODIPine [Norvasc] 10 mg PO DAILY 06/21/16 06/24/17 Albuterol Inhaler [Ventolin Hfa 1 - 2 puff INHALATION RT-Q6H PRN 03/12/17 Inhaler] Famotidine [Pepcid] 20 mg PO BID 06/24/17 06/24/17 Previous Rx's Medication Instructions Recorded Ibuprofen [Motrin] 600 mg PO Q6HR PRN #20 tab 06/24/17 Allergies Allergy/AdvReac Type Severity Reaction Status Date / Time No Known Allergies Allergy Verified 06/24/17 19:47 Review of Systems ROS Statement: Those systems with pertinent positive or pertinent negative responses have been documented in the HPI. ROS Other: All systems not noted in ROS Statement are negative. Past Medical History Past Medical History: Asthma, Hypertension Additional Past Medical History / Comment(s): pancreatitis, laryngitis History of Any Multi-Drug Resistant Organisms: None Reported Past Surgical History: No Surgical Hx Reported Past Anesthesia/Blood Transfusion Reactions: Unable to Obtain Additional Past Anesthesia/Blood Transfusion Reaction / Comment(s): Pt has never had surgery Past Psychological History: Anxiety Smoking Status: Current every day smoker - Past Family History Mother Family Medical History: Rheumatoid Arthritis (RA) Father Family Medical History: Asthma Additional Family Medical History / Comment(s): Father of an asthma attack which cause a cardiac arrest. General Exam - General Exam Comments Initial Comments: General: The patient is awake and alert, in no distress, and does not appear acutely ill. Neck: The neck is supple, there is no tenderness. Cardiovascular: There is a regular rate and rhythm. No murmur, rub or gallop is appreciated. Respiratory: Lungs are clear to auscultation, respirations are non-labored, breath sounds are equal. No wheezes, stridor, rales, or rhonchi. Musculoskeletal: Sensation intact with 2+ pulses throughout the left flexion. Tajik motion of left knee. Patient has full range motion of left ankle however there is pain. Pain over the medial malleolus and pain to the lateral there is ecchymosis and swelling noted. No obvious deformity. Neurological: CN II-XII intact, There are no obvious motor or sensory deficits. Coordination appears grossly intact. Speech is normal. Skin: Skin is warm and dry and no rashes or lesions are noted. Psychiatric: Normal mood and affect. Limitations: no limitations Course Vital Signs 06/24/17 19:10 Temperature 98.5 F Pulse Rate 86 Respiratory 18 Rate Blood Pressure 161/65 O2 Sat by Pulse 97 Oximetry Procedures - Orthopedic Splinting/Casting Injury #1 Side: left Upper Extremity Immobilizer: Tony wrap Lower Extremity Injury Location: ankle Medical Decision Making - Medical Decision Making 36-year-old male presents to the emergency department with a chief complaint of left ankle pain. At this time patient underwent an x-ray. This time x-rays reviewed and negative. We will give the patient crutches placed. We did give him follow-up with orthopedic discussed return parameters all the questions. He stated he understood and he is given plan. He will be discharged. - Radiology Data Radiology results: report reviewed, image reviewed Disposition Clinical Impression: Left ankle sprain Disposition: HOME SELF-CARE Condition: Stable Instructions: Ankle Sprain (ED) Additional Instructions: Please use medication as discussed. Please follow up with family doctor if symptoms have not improved over the next two days. Please return to the emergency room if your symptoms increase or worsen or for any other concerns. Rest the area. Ice the area 20 min on 20 min off 4x a day. Compress the area with either the TONY bandage or wearing the splint. Elevate the area above the heart whenever possible. Prescriptions: Ibuprofen [Motrin] 600 mg PO Q6HR PRN #20 tab PRN Reason: Pain Referrals: Angelica Kelley DO [Doctor of Osteopathic Medicine] - 1-2 days Time of Disposition: 19:52
--- NOTE | 2017-06-24 19:48 | XR ---
EXAMINATION TYPE: XR ankle complete LT DATE OF EXAM: 06/24/2017 COMPARISON: NONE HISTORY: Injury and pain TECHNIQUE: 3 views FINDINGS: There is a small Achilles calcaneal spur. There is soft tissue swelling over the medial mal leolus. I see no fracture line. IMPRESSION: Soft tissue swelling. No fracture.
[2017-06-24] MEDS ORDERED: HYDROcodone/APAP 5-325MG 1 EACH TAB PO STA (19:55)
== END 2017-06-24 20:06 | disposition home or self-care (01) ==
LOC: EC 18:53
DX: S93.402A Sprain of unspecified ligament of left ankle, initial encounter (principal); I10 Essential (primary) hypertension; F41.9 Anxiety disorder, unspecified; F17.200 Nicotine dependence, unspecified, uncomplicated; Z79.899 Other long term (current) drug therapy
CPT/HCPCS: 99283

== ENCOUNTER 2018-06-13 13:39 | Emergency (ER) | payer OTHER ==
[2018-06-13] MEDS ORDERED: KETOROLAC 30 MG/ML 1 ML VIAL IVP STA (14:23)
--- NOTE | 2018-06-13 14:30 | ED ---
Back Pain HPI - General Chief Complaint: Back Pain/Injury Stated Complaint: Back pain Time Seen by Provider: 06/13/18 14:00 Source: patient, RN notes reviewed Limitations: no limitations - History of Present Illness Initial Comments: This is a 37-year-old male who states she's had back pain for the past couple days across his lower back but this morning he had the hematuria which she's never had before. He states the pain is about 7/10 severity he denies any fevers chills nausea vomiting or sweats he has no known history of kidney stones and no family history is aware of. He denies any trauma denies any other modifying factors at this time patient stated he also has some burning with urination which resolved relatively quickly MD Complaint: back pain - Related Data Home Medications Medication Instructions Recorded Confirmed amLODIPine [Norvasc] 10 mg PO DAILY 06/21/16 06/13/18 Albuterol Inhaler [Ventolin Hfa 1 - 2 puff INHALATION RT-Q6H PRN 03/12/17 Inhaler] Famotidine [Pepcid] 20 mg PO BID 06/24/17 06/13/18 Ibuprofen [Motrin Ib] 400 - 800 mg PO Q8H PRN 06/13/18 06/13/18 Previous Rx's Medication Instructions Recorded Ibuprofen 800 mg PO Q6HR PRN #20 tablet 06/13/18 Tamsulosin HCl [Flomax] 0.4 mg PO DAILY #7 capsule 06/13/18 Allergies Allergy/AdvReac Type Severity Reaction Status Date / Time No Known Allergies Allergy Verified 06/13/18 13:54 Review of Systems ROS Statement: Those systems with pertinent positive or pertinent negative responses have been documented in the HPI. ROS Other: All systems not noted in ROS Statement are negative. Past Medical History Past Medical History: Asthma, Hypertension Additional Past Medical History / Comment(s): pancreatitis, laryngitis History of Any Multi-Drug Resistant Organisms: None Reported Past Surgical History: No Surgical Hx Reported Past Anesthesia/Blood Transfusion Reactions: Unable to Obtain Additional Past Anesthesia/Blood Transfusion Reaction / Comment(s): Pt has never had surgery Past Psychological History: Anxiety Smoking Status: Current every day smoker Past Alcohol Use History: Occasional Past Drug Use History: None Reported - Past Family History Mother Family Medical History: Rheumatoid Arthritis (RA) Father Family Medical History: Asthma Additional Family Medical History / Comment(s): Father of an asthma attack which cause a cardiac arrest. General Exam - General Exam Comments Initial Comments: This is a well-developed well-nourished awake alert oriented 3 male Limitations: no limitations General appearance: alert, anxious, in distress Head exam: Present: atraumatic, normocephalic, normal inspection Eye exam: Present: normal appearance, PERRL, EOMI. Absent: scleral icterus, conjunctival injection, periorbital swelling ENT exam: Present: normal exam, mucous membranes moist Neck exam: Present: normal inspection. Absent: tenderness, meningismus, lymphadenopathy Respiratory exam: Present: normal lung sounds bilaterally. Absent: respiratory distress, wheezes, rales, rhonchi, stridor Cardiovascular Exam: Present: regular rate, normal rhythm, normal heart sounds. Absent: systolic murmur, diastolic murmur, rubs, gallop, clicks GI/Abdominal exam: Present: soft, normal bowel sounds. Absent: distended, tenderness, guarding, rebound, rigid Rectal exam: Present: deferred exam: Present: normal inspection, circumcision. Absent: testicular tenderness, urethral discharge, scrotal swelling Extremities exam: Present: normal inspection, full ROM, normal capillary refill. Absent: tenderness, pedal edema, joint swelling, calf tenderness Back exam: Present: normal inspection, full ROM, tenderness, paraspinal tenderness. Absent: CVA tenderness (R), CVA tenderness (L), muscle spasm, vertebral tenderness (Tenderness over the lower lumbar and SI region to palpation no step-off or crepitation.) Neurological exam: Present: alert, oriented X3, CN II-XII intact Psychiatric exam: Present: normal affect, normal mood Skin exam: Present: warm, dry, intact, normal color. Absent: rash Course Vital Signs 06/13/18 13:41 Temperature 98.5 F Pulse Rate 107 H Respiratory 16 Rate Blood Pressure 144/87 O2 Sat by Pulse 98 Oximetry Medical Decision Making - Medical Decision Making Patient is feeling somewhat improved after the initial medication. I did a long discussion with her regarding the findings. Would be ultrasonic CAT scan he at this time is declining both prefer to try outpatient therapy first he'll be placed on Motrin Flomax oral fluids follow-up with his medical doctor return when necessary the presentation is consistent with renal colic and likely a passed stone - Lab Data Result diagrams: 06/13/18 14:10 06/13/18 14:10 Lab Results 06/13/18 06/13/18 06/13/18 Range/Units 14:10 14:10 14:10 WBC 6.0 (3.8-10.6) k/uL RBC 4.88 (4.30-5.90) m/uL Hgb 16.0 (13.0-17.5) gm/dL Hct 46.3 (39.0-53.0) % MCV 94.8 (80.0-100.0) fL MCH 32.7 (25.0-35.0) pg MCHC 34.5 (31.0-37.0) g/dL RDW 12.3 (11.5-15.5) % Plt Count 232 (150-450) k/uL Neutrophils % 69 % Lymphocytes % 21 % Monocytes % 4 % Eosinophils % 4 % Basophils % 1 % Neutrophils # 4.2 (1.3-7.7) k/uL Lymphocytes # 1.3 (1.0-4.8) k/uL Monocytes # 0.2 (0-1.0) k/uL Eosinophils # 0.2 (0-0.7) k/uL Basophils # 0.0 (0-0.2) k/uL Sodium 139 (137-145) mmol/L Potassium 4.2 (3.5-5.1) mmol/L Chloride 109 H (98-107) mmol/L Carbon Dioxide 25 (22-30) mmol/L Anion Gap 5 mmol/L BUN 11 (9-20) mg/dL Creatinine 0.83 (0.66-1.25) mg/dL Est GFR (CKD-EPI)AfAm >90 (>60 ml/min/1.73 sqM) Est GFR (CKD-EPI)NonAf >90 (>60 ml/min/1.73 sqM) Glucose 123 H (74-99) mg/dL Calcium 9.1 (8.4-10.2) mg/dL Magnesium 1.9 (1.6-2.3) mg/dL Total Bilirubin 0.9 (0.2-1.3) mg/dL AST 40 (17-59) U/L ALT 51 (21-72) U/L Alkaline Phosphatase 42 (38-126) U/L Total Protein 6.3 (6.3-8.2) g/dL Albumin 4.1 (3.5-5.0) g/dL Urine Color Yellow Urine Appearance Clear (Clear) Urine pH 6.0 (5.0-8.0) Ur Specific [place] 1.023 (1.001-1.035) Urine Protein Trace H (Negative) Urine Glucose (UA) Negative (Negative) Urine Ketones Negative (Negative) Urine Blood Negative (Negative) Urine Nitrite Negative (Negative) Urine Bilirubin Negative (Negative) Urine Urobilinogen 2.0 (<2.0) mg/dL Ur Leukocyte Esterase Negative (Negative) - Radiology Data Radiology results: report reviewed (I did review the imaging and report no acute findings), image reviewed Disposition Clinical Impression: Renal colic, Kidney stone, Back pain, Hematuria Disposition: HOME SELF-CARE Condition: Good Instructions: Acute Low Back Pain (ED), Kidney Stones (ED), Renal Colic (ED), Hematuria (ED) Prescriptions: Ibuprofen 800 mg PO Q6HR PRN #20 tablet PRN Reason: Pain Tamsulosin HCl [Flomax] 0.4 mg PO DAILY #7 capsule Is patient prescribed a controlled substance at d/c from ED?: No Referrals: None,Stated [Primary Care Provider] - 1-2 days
[2018-06-13 14:45] LABS: Appearance,Urine Clear (Clear); Bilirubin,Urine Negative (Negative); Blood,Urine Negative (Negative); Color,Urine Yellow; Glucose,Urine (UA) Negative (Negative); Ketones,Urine Negative (Negative); Leukocyte Esterase,Urine Negative (Negative); Nitrite,Urine Negative (Negative); Protein,Urine Trace (Negative); Specific Gravity,Urine 1.023 (1.001-1.035)
[2018-06-13 14:46] LABS: Basophils % (A) 1 %; Eosinophils # (A) 0.2 k/uL (0-0.7); Eosinophils % (A) 4 %; HCT 46.3 % (39.0-53.0); Lymphocytes # (A) 1.3 k/uL (1.0-4.8); Lymphocytes % (A) 21 %; MCH 32.7 pg (25.0-35.0); MCHC 34.5 g/dL (31.0-37.0); MCV 94.8 fL (80.0-100.0); Mean Platelet Volume 6.6; Monocytes # (A) 0.2 k/uL (0-1.0); Monocytes % (A) 4 %; Neutrophils # (A) 4.2 k/uL (1.3-7.7); Neutrophils % (A) 69 %; Platelet Count 232 k/uL (150-450); RBC 4.88 m/uL (4.30-5.90); RDW 12.3 % (11.5-15.5)
[2018-06-13 14:58] LABS: ALT 51 U/L (21-72); AST 40 U/L (17-59); Albumin 4.1 g/dL (3.5-5.0); Alkaline Phosphatase 42 U/L (38-126); Anion Gap 5 mmol/L; Blood Urea Nitrogen 11 mg/dL (9-20); Calcium 9.1 mg/dL (8.4-10.2); Carbon Dioxide 25 mmol/L (22-30); Chloride 109 mmol/L (98-107); Glucose 123 mg/dL (74-99); Magnesium 1.9 mg/dL (1.6-2.3); Potassium 4.2 mmol/L (3.5-5.1); Sodium 139 mmol/L (137-145); Total Bilirubin 0.9 mg/dL (0.2-1.3); Total Protein 6.3 g/dL (6.3-8.2)
--- NOTE | 2018-06-13 15:23 | XR ---
EXAMINATION TYPE: XR KUB DATE OF EXAM: 06/13/2018 COMPARISON: NONE HISTORY: Pain TECHNIQUE: Single supine KUB image of the abdomen is obtained FINDINGS: Small bowel demonstrates no evidence for dilatation or air fluid levels. Gas and fecal material is seen in non-distended colon. No convincing evidence for pneumoperitoneum. No unusual calcifications. The lung bases are clear. The osseous structures are intact. IMPRESSION: 1. Overall nonobstructive bowel gas pattern.
[2018-06-13 16:21] VITALS: BP 168/90; PULSE 78; RESP 18; TEMP 98.1
== END 2018-06-13 16:20 | disposition home or self-care (01) ==
LOC: EC 13:39
DX: N20.0 Calculus of kidney (principal); N23 Unspecified renal colic; J45.909 Unspecified asthma, uncomplicated; I10 Essential (primary) hypertension; F17.200 Nicotine dependence, unspecified, uncomplicated; Z79.899 Other long term (current) drug therapy; Z53.29 Procedure and treatment not carried out because of patient's decision for other reasons
CPT/HCPCS: 36415; 80053; 83735; 85025; 81003; 74018; 99283; 96374; J1885

== ENCOUNTER 2019-07-31 10:54 | Inpatient (IN) | payer OTHER ==
[2019-07-31] MEDS ORDERED: SODIUM CHLORIDE 0.9% 500 ML 500 ML IV STA (11:14)
[2019-07-31] MEDS ORDERED: MORPHINE SULFATE 4 MG/ML SYRINGE IVP STA (11:37)
[2019-07-31] MEDS ORDERED: FAMOTIDINE 20 MG/2 ML VIAL IV STA (11:37)
[2019-07-31] MEDS ORDERED: ONDANSETRON 4 MG/2 ML VIAL IVP STA (11:38)
--- NOTE | 2019-07-31 11:41 | ED ---
General Adult HPI - General Chief complaint: Chest Pain Stated complaint: Gerd Time Seen by Provider: 07/31/19 11:14 Source: patient, RN notes reviewed Mode of arrival: ambulatory Limitations: no limitations - History of Present Illness Initial comments: 38-year-old male with a past medical history hypertension, asthma, pancreatitis presents to the emergency department for a chief complaint of epigastric and chest pain. Patient states he is having a pancreatitis attack. States that this is exactly like the pancreatitis he has had in the past it radiates to his back. Admits to nausea and he almost vomited in the parking lot. Patient states he usually does not drink over the past 2 days has been drinking heavily because of his birthday and also been eating things that he shouldn't be. Patient has no other complaints at this time including shortness of breath, chest pain, abdominal pain, nausea or vomiting, headache, or visual changes. - Related Data Home Medications Medication Instructions Recorded Confirmed Albuterol Inhaler [Ventolin Hfa 1 - 2 puff INHALATION RT-Q6H PRN 03/12/17 07/31/19 Inhaler] Albuterol Nebulized [Ventolin 2.5 mg INHALATION RT-QID PRN 07/31/19 07/31/19 Nebulized] Famotidine [Pepcid] 40 mg PO BID 07/31/19 07/31/19 Allergies Allergy/AdvReac Type Severity Reaction Status Date / Time No Known Allergies Allergy Verified 07/31/19 11:17 Review of Systems ROS Statement: Those systems with pertinent positive or pertinent negative responses have been documented in the HPI. ROS Other: All systems not noted in ROS Statement are negative. Past Medical History Past Medical History: Asthma, Hypertension Additional Past Medical History / Comment(s): pancreatitis, laryngitis History of Any Multi-Drug Resistant Organisms: None Reported Past Surgical History: No Surgical Hx Reported Past Anesthesia/Blood Transfusion Reactions: Unable to Obtain Additional Past Anesthesia/Blood Transfusion Reaction / Comment(s): Pt has never had surgery Past Psychological History: Anxiety Smoking Status: Current every day smoker Past Alcohol Use History: Occasional Past Drug Use History: Marijuana - Past Family History Mother Family Medical History: Rheumatoid Arthritis (RA) Father Family Medical History: Asthma Additional Family Medical History / Comment(s): Father of an asthma attack which cause a cardiac arrest. General Exam Limitations: no limitations General appearance: alert, in no apparent distress Head exam: Present: atraumatic, normocephalic, normal inspection Eye exam: Present: normal appearance, PERRL, EOMI. Absent: scleral icterus, conjunctival injection, periorbital swelling ENT exam: Present: normal exam, mucous membranes moist Neck exam: Present: normal inspection, full ROM. Absent: tenderness, meningi smus, lymphadenopathy Respiratory exam: Present: normal lung sounds bilaterally. Absent: respiratory distress, wheezes, rales, rhonchi, stridor Cardiovascular Exam: Present: regular rate, normal rhythm, normal heart sounds. Absent: systolic murmur, diastolic murmur, rubs, gallop, clicks GI/Abdominal exam: Present: soft, tenderness (minimal epigastric tenderness, no RUQ tenderness), normal bowel sounds. Absent: distended, guarding, rebound, rigid Course Vital Signs 07/31/19 07/31/19 07/31/19 11:01 12:33 13:48 Temperature 98.2 F Pulse Rate 101 H 81 87 Respiratory 18 16 22 Rate Blood Pressure 162/103 184/102 174/121 O2 Sat by Pulse 98 100 98 Oximetry 07/31/19 07/31/19 14:51 16:10 Temperature Pulse Rate 89 75 Respiratory 16 16 Rate Blood Pressure 180/110 178/120 O2 Sat by Pulse 99 99 Oximetry - Reevaluation(s) Reevaluation #1: 07/31/19 13:28 Patient had a CAT scan 2 years ago which showed no abdominal aortic aneurysm. Was acute pancreatitis on the pancreatic head with stranding around the pancreas and involving the adjacent duodenum without evidence of fluid collection. There was also a 9-10 mm ulceration within the pancreatic tail. EKG Findings - EKG Comments: EKG Findings:: Sinus rhythm, ventricular rate 83, IN interval 158, QTC 444 Medical Decision Making - Medical Decision Making 38-year-old male with a past medical history of hypertension, asthma, pancreatitis presents for chief complaint of epigastric and chest pain. Patient states he is having a pancreatitis attack. States this is exactly like the pancreatits he has had in the past and radiates to his back. Admits to nausea and possible vomiting. On exam there is minimal epigastric tenderness. CBC CMP unremarkable. Troponin negative. Lipase 368. Chest x-ray shows no acute cardiopulmonary process. EKG does not have any evidence of ST elevation. Although lipase 368 patient's history of chronic pancreatitis and pain is likely related as symptoms are similar. However pain is intractable at this time despite several pain medications. Pt given labetalol for hypertension here in the emergency department. Patient will be admitted and cardiology will be consulted to rule out any ACS. Troponin trended. - Lab Data Result diagrams: 07/31/19 11:42 07/31/19 11:42 Lab Results 07/31/19 07/31/19 07/31/19 Range/Units 11:42 11:42 11:42 WBC 3.7 L (3.8-10.6) k/uL RBC 4.19 L (4.30-5.90) m/uL Hgb 15.0 (13.0-17.5) gm/dL Hct 40.5 (39.0-53.0) % MCV 96.6 (80.0-100.0) fL MCH 35.7 H (25.0-35.0) pg MCHC 37.0 (31.0-37.0) g/dL RDW 11.8 (11.5-15.5) % Plt Count 178 (150-450) k/uL Neutrophils % 53 % Lymphocytes % 34 % Monocytes % 7 % Eosinophils % 4 % Basophils % 1 % Neutrophils # 2.0 (1.3-7.7) k/uL Lymphocytes # 1.2 (1.0-4.8) k/uL Monocytes # 0.3 (0-1.0) k/uL Eosinophils # 0.2 (0-0.7) k/uL Basophils # 0.0 (0-0.2) k/uL PT 11.0 (9.0-12.0) sec INR 1.0 (<1.2) APTT 24.4 (22.0-30.0) sec D-Dimer (<0.60) mg/L FEU Sodium 141 (137-145) mmol/L Potassium 3.8 (3.5-5.1) mmol/L Chloride 107 (98-107) mmol/L Carbon Dioxide 23 (22-30) mmol/L Anion Gap 11 mmol/L BUN 8 L (9-20) mg/dL Creatinine 0.74 (0.66-1.25) mg/dL Est GFR (CKD-EPI)AfAm >90 (>60 ml/min/1.73 sqM) Est GFR (CKD-EPI)NonAf >90 (>60 ml/min/1.73 sqM) Glucose 91 (74-99) mg/dL Calcium 8.9 (8.4-10.2) mg/dL Magnesium 1.7 (1.6-2.3) mg/dL Total Bilirubin 1.0 (0.2-1.3) mg/dL AST 60 H (17-59) U/L ALT 69 (21-72) U/L Alkaline Phosphatase 47 (38-126) U/L Troponin I (0.000-0.034) ng/mL Total Protein 7.3 (6.3-8.2) g/dL Albumin 4.5 (3.5-5.0) g/dL Amylase 62 (30-110) U/L Lipase 368 H (23-300) U/L 07/31/19 07/31/19 Range/Units 11:42 11:42 WBC (3.8-10.6) k/uL RBC (4.30-5.90) m/uL Hgb (13.0-17.5) gm/dL Hct (39.0-53.0) % MCV (80.0-100.0) fL MCH (25.0-35.0) pg MCHC (31.0-37.0) g/dL RDW (11.5-15.5) % Plt Count (150-450) k/uL Neutrophils % % Lymphocytes % % Monocytes % % Eosinophils % % Basophils % % Neutrophils # (1.3-7.7) k/uL Lymphocytes # (1.0-4.8) k/uL Monocytes # (0-1.0) k/uL Eosinophils # (0-0.7) k/uL Basophils # (0-0.2) k/uL PT (9.0-12.0) sec INR (<1.2) APTT (22.0-30.0) sec D-Dimer 0.51 (<0.60) mg/L FEU Sodium (137-145) mmol/L Potassium (3.5-5.1) mmol/L Chloride (98-107) mmol/L Carbon Dioxide (22-30) mmol/L Anion Gap mmol/L BUN (9-20) mg/dL Creatinine (0.66-1.25) mg/dL Est GFR (CKD-EPI)AfAm (>60 ml/min/1.73 sqM) Est GFR (CKD-EPI)NonAf (>60 ml/min/1.73 sqM) Glucose (74-99) mg/dL Calcium (8.4-10.2) mg/dL Magnesium (1.6-2.3) mg/dL Total Bilirubin (0.2-1.3) mg/dL AST (17-59) U/L ALT (21-72) U/L Alkaline Phosphatase (38-126) U/L Troponin I <0.012 (0.000-0.034) ng/mL Total Protein (6.3-8.2) g/dL Albumin (3.5-5.0) g/dL Amylase (30-110) U/L Lipase (23-300) U/L Disposition Clinical Impression: Intractable abdominal pain Disposition: ADMITTED IP TO THIS [facility] Condition: Good Is patient prescribed a controlled substance at d/c from ED?: No Time of Disposition: 20:14
[2019-07-31] MEDS ORDERED: ASPIRIN 81 MG PO STA (11:43)
[2019-07-31 12:00] LABS: Basophils % (A) 1 %; Eosinophils # (A) 0.2 k/uL (0-0.7); Eosinophils % (A) 4 %; HCT 40.5 % (39.0-53.0); Lymphocytes # (A) 1.2 k/uL (1.0-4.8); Lymphocytes % (A) 34 %; MCH 35.7 pg (25.0-35.0); MCV 96.6 fL (80.0-100.0); Mean Platelet Volume 5.6; Monocytes # (A) 0.3 k/uL (0-1.0); Monocytes % (A) 7 %; Neutrophils % (A) 53 %; Platelet Count 178 k/uL (150-450); RBC 4.19 m/uL (4.30-5.90); RDW 11.8 % (11.5-15.5); WBC 3.7 k/uL (3.8-10.6)
[2019-07-31 12:04] LABS: Partial Thromboplastin Time 24.4 sec (22.0-30.0)
[2019-07-31 12:05] LABS: ALT 69 U/L (21-72); AST 60 U/L (17-59); African American GFR (CKD) >90 (>60 ml/min/1.73 sqM); Albumin 4.5 g/dL (3.5-5.0); Alkaline Phosphatase 47 U/L (38-126); Amylase 62 U/L (30-110); Anion Gap 11 mmol/L; Blood Urea Nitrogen 8 mg/dL (9-20); Calcium 8.9 mg/dL (8.4-10.2); Carbon Dioxide 23 mmol/L (22-30); Chloride 107 mmol/L (98-107); Glucose 91 mg/dL (74-99); Magnesium 1.7 mg/dL (1.6-2.3); Potassium 3.8 mmol/L (3.5-5.1); Sodium 141 mmol/L (137-145); Total Protein 7.3 g/dL (6.3-8.2)
--- NOTE | 2019-07-31 12:08 | XR ---
EXAMINATION TYPE: XR chest 2V DATE OF EXAM: 07/31/2019 COMPARISON: 01/08/2017 INDICATION: Chest pain TECHNIQUE: Frontal and lateral views of the chest are obtained. FINDINGS: The heart size is normal. The pulmonary vasculature is normal. The lungs are clear. IMPRESSION: 1. No acute pulmonary process.
[2019-07-31] MEDS ORDERED: MAG HYDROX/AL HYDROX/SIMETH 30 ML, HYOSCYAMINE ELIXIR 10 ML, CIMETIDINE HCL 300 MG, LID... PO STA ×4 (12:23)
[2019-07-31] MEDS ORDERED: KETOROLAC 30 MG/ML 1 ML VIAL IVP STA (12:23)
[2019-07-31] MEDS ORDERED: LABETALOL 5 MG/ML VIAL MDV IVP STA (13:17)
[2019-07-31] MEDS ORDERED: HYDROmorphone 0.5 MG/0.5 ML SYRINGE IVP STA (13:18)
[2019-07-31] MEDS ORDERED: MORPHINE SULFATE 4 MG/ML SYRINGE IV PRN (13:28)
[2019-07-31] MEDS ORDERED: ONDANSETRON 4 MG/2 ML VIAL IVP PRN (13:28)
[2019-07-31] MEDS ORDERED: NALOXONE 0.4 MG/ML 1 ML VIAL IV PRN (13:28)
[2019-07-31] MEDS: SODIUM CHLORIDE 0.9% 1,000 ML IV SCH (13:45)
[2019-07-31] MEDS ORDERED: ALBUTEROL NEBULIZED 2.5 MG/3 ML INHALATION PRN (13:58)
[2019-07-31] MEDS ORDERED: LORazepam 2 MG/ML INJ IV PRN ×2 (14:05)
--- NOTE | 2019-07-31 14:13 | P.HPIM ---
History of Present Illness H&P Date: 07/31/19 Chief Complaint: Pancreatitis 38-year-old male with PMH of pancreatitis and alcohol abuse presents to the ED for chest pain. Patient states that he has been partying hard over the last 2 days because of his birthday. Patient states that he has been binge drinking vodka during the last 2 days. Patient reports waking up this morning with excruciating midsternal chest pain that radiated to the back. Pain is described as sharp and stabbing in nature. Pain is 10 out of 10 in severity. Patient states that over the last 2 days he has also been eating greasy and spicy foods which may have aggravated his pain. Patient reports a history of daily drinking since the age of 23. He is attended alcohol rehab 3 times, last time was one year ago. Patient does report some w ithdrawal symptoms when he does not drink. He denies any alcohol induced seizures. Patient denies any headache, lower extremity edema, nausea or vomiting, fever or chills, cough, palpitations, changes in urination or bowel habits. No changes in appetite or weight. In the ED, vital signs were stable except for pulse of 101 and BP of 162/103. CBC showed leukopenia with WBC count of 3.7. D-dimer was negative. CMP showed AST 60. Lipase is elevated at 368. Troponin was less than 0.012, EKG showing normal sinus rhythm with sinus arrhythmia. Chest x-ray was negative. Patient is admitted for pancreatitis and chest pain, rule out acute coronary syndrome, cardiology is consulted. Review of Systems Pertinent positives and negatives as discussed in HPI, a complete review of systems was performed and all other systems are negative. Past Medical History Past Medical History: Asthma, Hypertension Additional Past Medical History / Comment(s): pancreatitis, laryngitis History of Any Multi-Drug Resistant Organisms: None Reported Past Surgical History: No Surgical Hx Reported Past Anesthesia/Blood Transfusion Reactions: Unable to Obtain Additional Past Anesthesia/Blood Transfusion Reaction / Comment(s): Pt has never had surgery Past Psychological History: Anxiety Smoking Status: Current every day smoker Past Alcohol Use History: Occasional Past Drug Use History: Marijuana - Past Family History Mother Family Medical History: Rheumatoid Arthritis (RA) Father Family Medical History: Asthma Additional Family Medical History / Comment(s): Father of an asthma attack which cause a cardiac arrest. Medications and Allergies Home Medications Medication Instructions Recorded Confirmed Type Albuterol Inhaler [Ventolin Hfa 1 - 2 puff INHALATION RT-Q6H PRN 03/12/17 07/31/19 History Inhaler] Albuterol Nebulized [Ventolin 2.5 mg INHALATION RT-QID PRN 07/31/19 07/31/19 History Nebulized] Famotidine [Pepcid] 40 mg PO BID 07/31/19 07/31/19 History Allergies Allergy/AdvReac Type Severity Reaction Status Date / Time No Known Allergies Allergy Verified 07/31/19 11:17 Physical Exam Vitals: Vital Signs Temp Pulse Resp BP Pulse Ox 07/31/19 13:48 87 22 174/121 98 07/31/19 12:33 81 16 184/102 100 07/31/19 11:01 98.2 F 101 H 18 162/103 98 Intake and Output 07/30/19 07/31/19 07/31/19 22:59 06:59 14:59 Other: Weight 104.326 kg General: [non toxic], [severe distress], [appears at stated age] Derm: [warm], [dry] Head: [atraumatic], [normocephalic], [symmetric] Eyes: [EOMI], [no lid lag], [anicteric sclera] Mouth: [no lip lesion], [mucus membranes moist] Cardiovascular: [S1S2 reg], [tachycardic], [positive DP pulse bilateral] Lungs: [CTA bilateral], [no rhonchi, no rales] , [no accessory muscle use] Abdominal: [soft], [tenderness to palpation in the epigastric area without rebound], [no guarding], [no appreciable organomegaly] Ext: [no gross muscle atrophy], [no edema], [no contractures] Neuro: [ CN II-XI grossly intact], [no focal neuro deficits] Psych: [Alert], [oriented], [appropriate affect] Results CBC & Chem 7: 07/31/19 11:42 07/31/19 11:42 Labs: Abnormal Lab Results - Last 24 Hours (Table) 07/31/19 07/31/19 Range/Units 11:42 11:42 WBC 3.7 L (3.8-10.6) k/uL RBC 4.19 L (4.30-5.90) m/uL MCH 35.7 H (25.0-35.0) pg BUN 8 L (9-20) mg/dL AST 60 H (17-59) U/L Lipase 368 H (23-300) U/L Assessment and Plan Assessment: Assessment and plan Acute pancreatitis rule out acute coronary syndrome Alcohol abuse with risk of withdrawal Leukopenia likely due to chronic alcoholic use Asthma, well-controlled Hypertensive urgency Lipase 368. Troponin less than 0.012, EKG showing normal sinus rhythm. D-dimer negative, low concerns for PE. Plans: Nothing by mouth and advance diet as tolerated. Protonix IV daily. Continue normal saline at 100 mL/h. Pain control with Dilaudid as needed. Zofran as needed for nausea or vomiting. Repeat amylase and lipase in the morning. Trend troponin/EKG to rule out ACS. Telemetry monitoring. Follow cardiology consultation. Plans: CIWA protocol. Ativan as needed for alcohol withdrawal. Start thiamine. WBC count 3.7. Patient afebrile. Chest x-ray negative. No signs of infection. Plans: Continue to monitor. Repeat CBC in the morning. Stable. Plans: Albuterol neb as needed for shortness of breath and wheezing. BP 174/121 on admission. Possibly related to pain. Plans: Labetalol IV x one time dose. Ensure adequate pain control. Monitor vitals, adjust medications as necessary. DVT prophylaxis: [SCD] Discussed with: [Patient] Anticipated discharge: [1-2 days] Anticipated discharge place: [Home] A total of [45] minutes was spent on the care of this complex patient more than 50% of the time was spent in counseling and care coordination. Patient would like to remain full code at this time. His girlfriend is the decision maker in the case that he can't make decisions for himself.
[2019-07-31] MEDS: PANTOPRAZOLE 40 MG/10 ML VIAL IVP SCH (16:31)
[2019-07-31] MEDS: HYDROmorphone 0.5 MG/0.5 ML SYRINGE IVP PRN ×2 (18:11→20:32)
[2019-07-31] MEDS: cloNIDine HCL 0.2 MG TAB PO PRN (20:33)
--- NOTE | 2019-07-31 21:59 | CT ---
EXAMINATION TYPE: CT angio chest without and with contrast and with 3-D reconstruction renderings DATE OF EXAM: 07/31/2019 9:15 PM COMPARISON: None HISTORY: chest pain CT DLP: 1220 mGycm Automated exposure control for dose reduction was used. CONTRAST: CTA scan of the thorax is performed with IV Contrast, patient injected with 100 mL of Isovu e 370, pulmonary embolism protocol. Three-D reconstructions. FINDINGS: LUNGS AND PLEURAL SPACES: The lungs are grossly clear, there is no concerning parenchymal mass or nod ule identified. There is no pleural effusion or pneumothorax seen. MEDIASTINUM: Precontrast CT data set negative for intramural hematoma or other acute aortic wall proc ess. Postcontrast CTA negative for acute aortic findings. There is satisfactory enhancement of the pulmonary artery and its branches, there is no CT evidence f or pulmonary embolism. No cardiomegaly or pericardial effusion. No chest adenopathy. OTHER: There is moderate indistinctness throughout the pancreatic head parenchyma and there is moder ate edematous reticulation throughout the surrounding anterior pararenal space circumferential to the pancreatic head. These changes suggest noncomplicated acute pancreatitis. Differential diagnosis inc ludes peptic ulcer disease, but pancreatitis is the favored CT diagnosis. There is no pancreatic ductal dilation or extrahepatic or intrahepatic biliary tree dilation, and the gallbladder is unremarkable. IMPRESSION: 1) FINDINGS CONSISTENT WITH ACUTE PANCREATITIS, DISCUSSED. 2) NO ACUTE THORACIC PROCESS. 3) INCIDENTAL: CORONARY CALCIFICATIONS.
[2019-07-31] MEDS: LORazepam 2 MG/ML INJ IV PRN (22:33)
[2019-07-31 23:43] VITALS: RESP 18
[2019-08-01] MEDS: HYDROmorphone 0.5 MG/0.5 ML SYRINGE IVP PRN ×4 (00:15→09:17)
[2019-08-01] MEDS: SODIUM CHLORIDE 0.9% 1,000 ML IV SCH ×2 (01:47→10:51)
[2019-08-01] MEDS: LORazepam 2 MG/ML INJ IV PRN (01:47)
[2019-08-01] MEDS: cloNIDine HCL 0.2 MG TAB PO PRN ×2 (01:51→08:40)
[2019-08-01 07:21] LABS: Basophils % (A) 1 %; Eosinophils # (A) 0.2 k/uL (0-0.7); Eosinophils % (A) 4 %; HCT 42.9 % (39.0-53.0); HGB 15.9 gm/dL (13.0-17.5); Lymphocytes # (A) 1.4 k/uL (1.0-4.8); Lymphocytes % (A) 26 %; MCH 36.2 pg (25.0-35.0); MCHC 37.1 g/dL (31.0-37.0); MCV 97.7 fL (80.0-100.0); Mean Platelet Volume 5.8; Monocytes # (A) 0.3 k/uL (0-1.0); Monocytes % (A) 6 %; Neutrophils # (A) 3.4 k/uL (1.3-7.7); Neutrophils % (A) 62 %; Platelet Count 170 k/uL (150-450); RBC 4.39 m/uL (4.30-5.90); RDW 11.8 % (11.5-15.5); WBC 5.5 k/uL (3.8-10.6)
[2019-08-01 07:26] LABS: ALT 62 U/L (21-72); AST 61 U/L (17-59); African American GFR (CKD) >90 (>60 ml/min/1.73 sqM); Albumin 4.5 g/dL (3.5-5.0); Alkaline Phosphatase 46 U/L (38-126); Amylase 96 U/L (30-110); Anion Gap 9 mmol/L; Blood Urea Nitrogen 4 mg/dL (9-20); Calcium 8.6 mg/dL (8.4-10.2); Carbon Dioxide 26 mmol/L (22-30); Chloride 102 mmol/L (98-107); Glucose 105 mg/dL (74-99); Potassium 3.4 mmol/L (3.5-5.1); Sodium 137 mmol/L (137-145); Total Bilirubin 1.8 mg/dL (0.2-1.3); Total Protein 7.2 g/dL (6.3-8.2)
[2019-08-01] MEDS: PANTOPRAZOLE 40 MG/10 ML VIAL IVP SCH (08:39)
[2019-08-01] MEDS: HYDROmorphone 1 MG/ML 1 ML SYRINGE IVP PRN ×3 (10:51→17:48)
--- NOTE | 2019-08-01 10:52 | P.PN ---
Subjective Progress Note Date: 08/01/19 Principal diagnosis: Pancreatitis Patient was seen and examined. No acute events overnight. Patient reports excruciating epigastric discomfort radiating to the back. Pain is 10 out of 10 in severity and goes down to a 7 with IV Dilaudid. He denies any chest pain shortness of breath or palpitations. No nausea or vomiting. No fever or chills. Objective - Vital Signs Vital signs: Vital Signs Temp 98.2 F 08/01/19 08:00 Pulse 66 08/01/19 08:00 Resp 18 08/01/19 08:00 BP 215/144 08/01/19 08:00 Pulse Ox 98 08/01/19 08:00 Intake & Output 07/31/19 08/01/19 08/01/19 18:59 06:59 18:59 Intake Total 0 500 0 Balance 0 500 0 Weight 104.326 kg 102.1 kg Intake: Intake, IV Titration 500 Amount Sodium Chloride 0.9% 1, 500 000 ml @ 100 mls/hr IV . Q10H LORIE Rx#:[id number] Oral 0 0 Other: # Voids 1 - Exam General: [non toxic], [severe distress], [appears at stated age] Derm: [warm], [dry] Head: [atraumatic], [normocephalic], [symmetric] Eyes: [EOMI], [no lid lag], [anicteric sclera] Mouth: [no lip lesion], [mucus membranes moist] Cardiovascular: [S1S2 reg], [tachycardic], [positive DP pulse bilateral] Lungs: [CTA bilateral], [no rhonchi, no rales] , [no accessory muscle use] Abdominal: [soft], [tenderness to palpation in the epigastric area without rebound], [no guarding], [no appreciable organomegaly] Ext: [no gross muscle atrophy], [no edema], [no contractures] Neuro: [no focal neuro deficits] Psych: [Alert], [oriented], [appropriate affect] - Labs CBC & Chem 7: 08/01/19 06:30 08/01/19 06:30 Labs: Abnormal Lab Results - Last 24 Hours (Table) 07/31/19 07/31/19 08/01/19 Range/Units 11:42 11:42 00:01 WBC 3.7 L (3.8-10.6) k/uL RBC 4.19 L (4.30-5.90) m/uL MCH 35.7 H (25.0-35.0) pg MCHC (31.0-37.0) g/dL Potassium (3.5-5.1) mmol/L BUN 8 L (9-20) mg/dL Glucose (74-99) mg/dL Total Bilirubin (0.2-1.3) mg/dL AST 60 H (17-59) U/L Troponin I 0.065 H* (0.000-0.034) ng/mL Lipase 368 H (23-300) U/L 08/01/19 08/01/19 Range/Units 06:30 06:30 WBC (3.8-10.6) k/uL RBC (4.30-5.90) m/uL MCH 36.2 H (25.0-35.0) pg MCHC 37.1 H (31.0-37.0) g/dL Potassium 3.4 L (3.5-5.1) mmol/L BUN 4 L (9-20) mg/dL Glucose 105 H (74-99) mg/dL Total Bilirubin 1.8 H (0.2-1.3) mg/dL AST 61 H (17-59) U/L Troponin I (0.000-0.034) ng/mL Lipase 1088 H (23-300) U/L Assessment and Plan Assessment: Assessment and plan Acute pancreatitis rule out acute coronary syndrome Alcohol abuse with risk of withdrawal Asthma, well-controlled Hypertensive urgency Resolved: Leukopenia Lipase [id number]. Troponin less than 0.012, 0.013, 0.065, EKG showing normal sinus rhythm. D-dimer negative, low concerns for PE. Plans: Clear liquid diet and advance diet as tolerated. Protonix IV daily. Continue normal saline at 100 mL/h. Pain control with Dilaudid as needed. Zofran as needed for nausea or vomiting. Repeat amylase and lipase in the morning. Trend troponin/EKG to rule out ACS. Telemetry monitoring. Follow cardiology consultation. Plans: CIWA protocol. Ativan as needed for alcohol withdrawal. Start thiamine. Stable. Plans: Albuterol neb as needed for shortness of breath and wheezing. BP 215/144 on admission. Possibly related to pain. Plans: Start amlodipine 10 mg by mouth daily. Clonidine by mouth as needed for SBP greater than 180. Ensure adequate pain control. Monitor vitals, adjust medications as necessary. [Lipase uptrending. Needs better pain control. BP continues to be elevated, started on antihypertensive medication. ACS ruled out. Cardiology evaluation pending. Likely DC in 1-3 days when pain is better controlled and able to tolerate oral intake.]
[2019-08-01] MEDS ORDERED: amLODIPine 10 MG TAB PO SCH (11:00)
--- NOTE | 2019-08-01 13:25 | P.CRDCN ---
History of Present Illness Consult date: 08/01/19 Requesting physician: Miguelina Mtz Reason for Consult (text): Abnormal troponin Chief complaint: Epigastric pain with radiation to the back History of present illness: 's is a 38-year-old gentleman with past medical history of pancreatitis, chronic nicotine dependence and alcohol abuse who presented to the hospital with symptoms of mid epigastric discomfort that radiated through to his back. According to the patient, he's been drinking heavy alcohol over the past few days, as well as binge drinking. Patient states he had drank heavily in the past but it stopped drinking for a period of time. He recently lost his father and is having some family concerns, he states that he started drinking again recently. He's been drinking basically since the age of 23. He presented to the hospital because of the discomfort in the midepigastric area which she described as severe, he states he could also feel it through to his back. Pain worsens with deep breathing and on palpation of the chest. Chest x-ray on presentation here did not reveal any acute pulmonary process. EKG showed normal sinus rhythm with no acute changes. A TA the chest was performed, findings consistent with acute pancreatitis, no acute thoracic process, coronary calcifications noted. Pressure on arrival here 162/103 with a heart rate of 100, 98% on room air. Blood pressure this morning 157/110, 157/116, heart rate in the 70s, 97% on room air. White blood cell count 5.5, hemoglobin 15.9, bernadette telet count 170. Sodium 137, potassium 3.4, BUN 4, creatinine 0.7. D-dimer negative. Troponin 0.012, 0.013, 0.065. Amylase 96, lipase 368 on admission, 1088 today. The time of my examination, patient does complain persistently of some mid epigastric and abdominal pain. Past Medical History Past Medical History: Asthma, Hypertension Additional Past Medical History / Comment(s): pancreatitis, laryngitis History of Any Multi-Drug Resistant Organisms: None Reported Past Surgical History: No Surgical Hx Reported Past Anesthesia/Blood Transfusion Reactions: Unable to Obtain Additional Past Anesthesia/Blood Transfusion Reaction / Comment(s): Pt has never had surgery Past Psychological History: Anxiety Smoking Status: Current every day smoker Past Alcohol Use History: Occasional Past Drug Use History: Marijuana - Past Family History Mother Family Medical History: Rheumatoid Arthritis (RA) Father Family Medical History: Asthma Additional Family Medical History / Comment(s): Father of an asthma attack which cause a cardiac arrest. Medications and Allergies Home Medications Medication Instructions Recorded Confirmed Type Albuterol Inhaler [Ventolin Hfa 1 - 2 puff INHALATION RT-Q6H PRN 03/12/17 07/31/19 History Inhaler] Albuterol Nebulized [Ventolin 2.5 mg INHALATION RT-QID PRN 07/31/19 07/31/19 History Nebulized] Famotidine [Pepcid] 40 mg PO BID 07/31/19 07/31/19 History Allergies Allergy/AdvReac Type Severity Reaction Status Date / Time No Known Allergies Allergy Verified 07/31/19 11:17 Physical Exam Vitals: Vital Signs Temp Pulse Pulse Resp BP BP BP 08/01/19 11:18 97.9 F 72 18 157/110 157/116 08/01/19 08:00 98.2 F 66 18 215/144 08/01/19 03:44 98.8 F 74 18 189/136 08/01/19 03:43 77 18 07/31/19 23:22 97.9 F 70 18 199/133 207/145 07/31/19 19:59 98.3 F 84 17 196/143 208/141 07/31/19 16:43 98.7 F 76 16 214/139 07/31/19 16:10 75 16 178/120 07/31/19 14:51 89 16 180/110 07/31/19 13:48 87 22 174/121 Pulse Ox 08/01/19 11:18 97 08/01/19 08:00 98 08/01/19 03:44 99 08/01/19 03:43 07/31/19 23:22 98 07/31/19 19:59 95 07/31/19 16:43 100 07/31/19 16:10 99 07/31/19 14:51 99 07/31/19 13:48 98 Intake and Output 07/31/19 08/01/19 08/01/19 22:59 06:59 14:59 Intake Total 0 500 0 Balance 0 500 0 Intake: Intake, IV Titration 500 Amount Sodium Chloride 0.9% 1, 500 000 ml @ 100 mls/hr IV . Q10H [facility] Rx#:[id number] Oral 0 0 Other: # Voids 1 Weight 102.1 kg PHYSICAL EXAMINATION: GENERAL: 38-year-old gentleman in no acute distress at the time of my examination HEENT: Head is atraumatic, normocephalic. Pupils equal, round. Sclera anicteric. Conjunctiva are clear. Mucous membranes of the mouth are moist. Neck is supple. There is no elevated jugular venous pressure. No carotid bruit is heard. HEART EXAMINATION: Heart S1, S2 normal. No murmur or gallop heard. CHEST EXAMINATION: Lungs reveal some fine scattered wheezing throughout. ABDOMEN: Soft, positive mid epigastric and upper abdominal discomfort . Bowel sounds are heard. No organomegaly noted. EXTREMITIES: 2+ peripheral pulses with no evidence of peripheral edema and no calf tenderness noted. NEUROLOGIC patient is awake, alert and oriented 3 . . Results 08/01/19 06:30 08/01/19 06:30 Cardiac Enzymes 07/31/19 08/01/19 08/01/19 Range/Units 17:26 00:01 06:30 AST 61 H (17-59) U/L Troponin I 0.013 0.065 H* (0.000-0.034) ng/mL CBC 08/01/19 Range/Units 06:30 WBC 5.5 (3.8-10.6) k/uL RBC 4.39 (4.30-5.90) m/uL Hgb 15.9 (13.0-17.5) gm/dL Hct 42.9 (39.0-53.0) % Plt Count 170 (150-450) k/uL Comprehensive Metabolic Panel 08/01/19 Range/Units 06:30 Sodium 137 (137-145) mmol/L Potassium 3.4 L (3.5-5.1) mmol/L Chloride 102 (98-107) mmol/L Carbon Dioxide 26 (22-30) mmol/L BUN 4 L (9-20) mg/dL Creatinine 0.75 (0.66-1.25) mg/dL Glucose 105 H (74-99) mg/dL Calcium 8.6 (8.4-10.2) mg/dL AST 61 H (17-59) U/L ALT 62 (21-72) U/L Alkaline Phosphatase 46 (38-126) U/L Total Protein 7.2 (6.3-8.2) g/dL Albumin 4.5 (3.5-5.0) g/dL Current Medications Generic Name Dose Route Start Last Admin Trade Name Freq PRN Reason Stop Dose Admin Albuterol Sulfate 2.5 mg 07/31/19 13:58 Ventolin Nebulized INHALATION RT-QID PRN Shortness Of Breath Amlodipine Besylate 10 mg 08/01/19 11:00 08/01/19 10:51 Norvasc PO 10 mg DAILY LORIE Administration Clonidine 0.2 mg 07/31/19 20:15 08/01/19 08:40 Catapres PO 0.2 mg QID PRN Administration Blood Pressure - High Hydromorphone HCl 1 mg 08/01/19 10:48 08/01/19 10:51 Dilaudid IVP 1 mg Q3HR PRN Administration Moderate Pain Sodium Chloride 1,000 mls @ 100 mls/hr 07/31/19 13:30 08/01/19 10:51 Saline 0.9% IV Not Given .Q10H LORIE Lorazepam 1 mg 07/31/19 14:05 08/01/19 01:47 Ativan IV 1 mg Q2HR PRN Administration CIWA 8 or 9 Lorazepam 1 mg 07/31/19 14:05 Ativan IV Q1HR PRN CIWA 10 to 15 Lorazepam 2 mg 07/31/19 14:05 Ativan IV 08/02/19 14:06 Q10M PRN CIWA 16 or higher Naloxone HCl 0.2 mg 07/31/19 13:28 Narcan IV Q2M PRN Opioid Reversal Ondansetron HCl 4 mg 07/31/19 13:28 Zofran IVP Q8HR PRN Nausea And Vomiting Pantoprazole Sodium 40 mg 07/31/19 14:00 08/01/19 08:39 Protonix IVP 40 mg DAILY LORIE Administration Intake and Output 07/31/19 08/01/19 08/01/19 22:59 06:59 14:59 Intake Total 0 500 0 Balance 0 500 0 Intake: Intake, IV Titration 500 Amount Sodium Chloride 0.9% 1, 500 000 ml @ 100 mls/hr IV . Q10H LORIE Rx#:[id number] Oral 0 0 Other: # Voids 1 Weight 102.1 kg 08/01/19 06:30 08/01/19 06:30 EKG Interpretations (text) EKG shows normal sinus rhythm with no acute changes Assessment and Plan Plan: Assessment and plan #1 acute pancreatitis #2 atypical chest pain, mostly lobe located in the epigastric and abdominal region with radiation to the back. Troponins 0.012, 0.013, 0.065. #3 uncontrolled high blood pressure #4 alcohol abuse #5 chronic nicotine dependence #6 asthma #7 Plan We will obtain an echocardiogram with Doppler study. Discontinue Norvasc 10 mg daily, we will also add Coreg to the patient's medication regime. Once the patient's Pancreatitis has improved, perhaps as an outpatient consider stress testing. Further recommendations to follow. DNP note has been reviewed, I agree with a documented findings and plan of care. Patient was seen and examined.
[2019-08-01 15:17] VITALS: BP 166/120; PULSE 68; TEMP 97.5
[2019-08-01] MEDS ORDERED: hydrALAZINE HCL 20 MG/ML 1 ML VIAL IVP PRN (15:45)
[2019-08-01] MEDS ORDERED: METOPROLOL TARTRATE 5 MG/5 ML VIAL IVP ONE ×2 (15:49→16:12)
[2019-08-01] MEDS ORDERED: hydrALAZINE HCL 20 MG/ML 1 ML VIAL ONE (15:49)
[2019-08-01] MEDS ORDERED: CARVEDILOL 6.25 MG TAB PO SCH (17:30)
[2019-08-01] MEDS ORDERED: METOPROLOL TARTRATE 50 MG TAB PO SCH (21:00)
[2019-08-02] MEDS ORDERED: HEPARIN SODIUM,PORCINE 5,000 UNIT/ML 1 ML VIAL SQ SCH
--- NOTE | 2019-08-03 07:40 | CDI ---
Documentation Clarification Form Date: 08/03/2019 From: Theresa Rangel Phone: If questions call Nuvia Christensen @ [phone], Hours-8:30 am & 5 pm MChristofer Mckeon Admit Date: 08/01/2019 2:08:00 PM Patient Name: Nico Tafoya Visit Number: [id number] Discharge Date: 08/01/2019 7:04:00 PM ATTENTION: The Clinical Documentation Specialists (CDI) and [facility] Coding Staff appreciate your assistance in clarifying documentation. Please respond to the clarification below the line at the bottom and electronically sign. The CDI & [facility] Coding staff will review the response and follow-up if needed. Please note: Queries are made part of the Legal Health Record. If you have any questions, please contact the author of this message via ITS. Dr. Miguelina Mtz Pancreatitis is documented in the ED note, H&P, consult & PN. Patient history/risk factors: alcohol abuse Clinical Indicators: midsternal chest pain that radiated to the back Radiology: Chest CT-Findins consistent w acute pancreatitis. Labs: Lipase: 368/1088. AST: 60/61, Bilirubin: 1.0/1.8 Vital Signs: P-101, R-18, BP-162/103 Treatment: IV Protonix, IV fluids, Dilaudid, Zofran, repeat labs Consults: cardiology In your professional opinion, can the etiology of the acute on chronic pancreatitis be further specified as one of the following, if known? Alcohol induced Biliary Drug induced Gallstone Idiopathic Other, please specify Unable to determine alcohol induced MTDD
--- NOTE | 2019-08-06 12:00 | ECHOF ---
Referral Reason:abn trop MEASUREMENTS -------- HEIGHT: 175.3 cm WEIGHT: 106.6 kg BP: IVSd: 1.5 cm (0.6 - 1.1) LVIDd: 4.2 cm (3.9 - 5.3) LVPWd: 1.6 cm (0.6 - 1.1) IVSs: 1.7 cm LVIDs: 3.4 cm LVPWs: 1.8 cm LA Diam: 3.1 cm (2.7 - 3.8) LAESV Index (A-L): 18.23 ml/m Ao Diam: 3.2 cm (2.0 - 3.7) AV Cusp: 1.8 cm (1.5 - 2.6) LA Diam: 3.6 cm (2.7 - 3.8) MV EXCURSION: 26.377 mm (> 18.000) MV EF SLOPE: 94 mm/s (70 - 150) EPSS: 0.3 cm MV E Matias: 0.46 m/s MV DecT: 311 ms MV A Matias: 0.55 m/s MV E/A Ratio: 0.83 RAP: 5.00 mmHg RVSP: 14.63 mmHg TAPSE: 18.13 mm FINDINGS -------- Sinus rhythm. This was a technically good study. The left ventricular size is normal. There is moderate concentric left ventricular hypertrophy. O verall left ventricular systolic function is normal with, an EF between 55 - 60 %. The diastolic fi lling pattern is normal for the age of the patient 8.31. The right ventricle is normal in size. The left atrial size is normal. Normal LA size by volume 22+/-6 ml/m2. The right atrial size is normal. The aortic valve is trileaflet, and appears structurally normal. No aortic stenosis or regurgitation. Mild mitral regurgitation is present. Mild tricuspid regurgitation present. Right ventricular systolic pressure is normal at < 35 mmHg. There is no evidence of pulmonary hypertension. There is no pulmonic regurgitation present. The aortic root size is normal. There is no pericardial effusion. CONCLUSIONS -------- 1. Sinus rhythm. 2. This was a technically good study. 3. The left ventricular size is normal. 4. There is moderate concentric left ventricular hypertrophy. 5. Overall left ventricular systolic function is normal with, an EF between 55 - 60 %. 6. The diastolic filling pattern is normal for the age of the patient 8.31 7. The right ventricle is normal in size. 8. The left atrial size is normal. 9. Normal LA size by volume 22+/-6 ml/m2. 10. The right atrial size is normal. 11. The aortic valve is trileaflet, and appears structurally normal. No aortic stenosis or regurgitat ion. 12. Mild mitral regurgitation is present. 13. Mild tricuspid regurgitation present. 14. Right ventricular systolic pressure is normal at < 35 mmHg. 15. There is no evidence of pulmonary hypertension. 16. There is no pulmonic regurgitation present. 17. The aortic root size is normal. 18. There is no pericardial effusion. TRANSACTION MANAGER: Keisha Phelps RDCS
== END 2019-08-01 19:04 | disposition left against medical advice (07) | DRG 439 ==
LOC: EC 10:54 → 3SCARD 13:49 → OBSVTOIN 08-01 14:08
PROVIDERS: ADMIT Family Medicine; ATTEND Family Medicine
DX: K85.20 Alcohol induced acute pancreatitis without necrosis or infection (principal); F10.239 Alcohol dependence with withdrawal, unspecified; K86.0 Alcohol-induced chronic pancreatitis; K86.81 Exocrine pancreatic insufficiency; D72.819 Decreased white blood cell count, unspecified; K21.9 Gastro-esophageal reflux disease without esophagitis; J45.909 Unspecified asthma, uncomplicated; I10 Essential (primary) hypertension; I16.0 Hypertensive urgency; F41.9 Anxiety disorder, unspecified; F17.200 Nicotine dependence, unspecified, uncomplicated; Z71.6 Tobacco abuse counseling; Z79.899 Other long term (current) drug therapy; Z87.09 Personal history of other diseases of the respiratory system; Z82.5 Family history of asthma and other chronic lower respiratory diseases; Z82.41 Family history of sudden cardiac death; Z82.61 Family history of arthritis
CPT/HCPCS: 36415; 71046; 71275; 74018; 80053; 80306; 80320; 81001; 82150; 83690; 83735; 84484; 85025; 85379; 85610; 85730; 93005; 93306; 96361; 96374; 96375; 96376; 99285

== ENCOUNTER 2019-08-02 10:39 | Inpatient (IN) | payer OTHER ==
[2019-08-02] MEDS ORDERED: MORPHINE SULFATE 2 MG/ML SYRINGE IVP STA (10:45)
[2019-08-02] MEDS ORDERED: SODIUM CHLORIDE 0.9% 1,000 ML IV STA (10:45)
--- NOTE | 2019-08-02 11:12 | ED ---
General Adult HPI - General Chief complaint: Abdominal Pain Stated complaint: pancreatitis Time Seen by Provider: 08/02/19 10:45 Source: patient, RN notes reviewed Mode of arrival: ambulatory Limitations: no limitations - History of Present Illness Initial comments: 38-year-old male with a past medical history of asthma, hypertension, pancreatitis presents to the emergency department after leaving AGAINST MEDICAL ADVICE for pancreatitis, uncontrolled hypertension, elevated troponin yesterday. Patient states he had an emergency at home and had to leave. However he is back to continue his care today. Patient states his abdominal pain has improved somewhat. States he did eat a salad yesterday. No vomiting. Patient's troponin was noted to increase on the third troponin to 0.065. Cardiology was recommending echo at that time. Lipase also increased to 1000 while in the hospital. - Related Data Home Medications Medication Instructions Recorded Confirmed Albuterol Inhaler [Ventolin Hfa 1 - 2 puff INHALATION RT-Q6H PRN 03/12/17 08/02/19 Inhaler] Albuterol Nebulized [Ventolin 2.5 mg INHALATION RT-QID PRN 07/31/19 08/02/19 Nebulized] Famotidine [Pepcid] 40 mg PO BID 07/31/19 08/02/19 Previous Rx's Medication Instructions Recorded Carvedilol [Coreg] 3.125 mg PO BID-W/MEALS #60 tab 08/02/19 amLODIPine [Norvasc] 10 mg PO DAILY #30 tab 08/02/19 Allergies Allergy/AdvReac Type Severity Reaction Status Date / Time No Known Allergies Allergy Verified 08/02/19 11:11 Review of Systems ROS Statement: Those systems with pertinent positive or pertinent negative responses have been documented in the HPI. ROS Other: All systems not noted in ROS Statement are negative. Past Medical History Past Medical History: Asthma, Hypertension Additional Past Medical History / Comment(s): pancreatitis, laryngitis History of Any Multi-Drug Resistant Organisms: None Reported Past Surgical History: No Surgical Hx Reported Past Anesthesia/Blood Transfusion Reactions: Unable to Obtain Additional Past Anesthesia/Blood Transfusion Reaction / Comment(s): Pt has never had surgery Past Psychological History: Anxiety Smoking Status: Current every day smoker Past Alcohol Use History: Occasional Past Drug Use History: Marijuana - Past Family History Mother Family Medical History: Rheumatoid Arthritis (RA) Father Family Medical History: Asthma Additional Family Medical History / Comment(s): Father of an asthma attack which cause a cardiac arrest. General Exam Limitations: no limitations General appearance: alert, in no apparent distress Head exam: Present: atraumatic, normocephalic, normal inspection Eye exam: Present: normal appearance, PERRL, EOMI. Absent: scleral icterus, conjunctival injection, periorbital swelling ENT exam: Present: normal exam, mucous membranes moist Neck exam: Present: normal inspection, full ROM. Absent: tenderness, meningismus, lymphadenopathy Respiratory exam: Present: normal lung sounds bilaterally. Absent: respiratory distress, wheezes, rales, rhonchi, stridor Cardiovascular Exam: Present: regular rate, normal rhythm, normal heart sounds. Absent: systolic murmur, diastolic murmur, rubs, gallop, clicks GI/Abdominal exam: Present: soft, tenderness (mild tenderness epigastric areA), normal bowel sounds. Absent: distended, guarding, rebound, rigid Neurological exam: Present: alert Psychiatric exam: Present: normal affect, normal mood Course Vital Signs 08/02/19 08/02/19 08/02/19 10:41 11:18 11:30 Temperature 97.7 F Pulse Rate 132 H 115 H 111 H Respiratory 20 25 H 20 Rate Blood Pressure 129/95 135/99 O2 Sat by Pulse 98 97 96 Oximetry 08/02/19 08/02/19 08/02/19 12:00 13:40 15:30 Temperature Pulse Rate 94 72 88 Respiratory 15 18 16 Rate Blood Pressure 141/105 148/102 155/115 O2 Sat by Pulse 98 97 98 Oximetry 08/02/19 15:46 Temperature 98 F Pulse Rate 86 Respiratory 18 Rate Blood Pressure 149/107 O2 Sat by Pulse 98 Oximetry EKG Findings - EKG Comments: EKG Findings:: Sinus tachycardia, ventricular rate 110, WA interval 134, QTC 489. Medical Decision Making - Medical Decision Making 38-year-old male presents for readmission after leaving AGAINST MEDICAL ADVICE last night for pancreatitis, elevated troponin, uncontrolled blood pressure. Patient was found of an elevated troponin of 0.065 on the third of read and lipase was increasing from 300 to 1,000 while in the hospital. Exam shows mild epigastric tenderness.Troponin here today 0.042 which is improving. Lipase improving at 421. CBC unremarkable. However given plan of echo patient will be admitted for further management. Patient agreeable to this. - Lab Data Result diagrams: 08/02/19 11:25 08/02/19 11:25 Disposition Clinical Impression: Pancreatitis Disposition: ADMITTED IP TO THIS HOSP Condition: Fair Is patient prescribed a controlled substance at d/c from ED?: No Time of Disposition: 11:13
[2019-08-02 11:44] LABS: Basophils # (A) 0.1 k/uL (0-0.2); Basophils % (A) 1 %; Eosinophils # (A) 0.2 k/uL (0-0.7); Eosinophils % (A) 3 %; HCT 48.9 % (39.0-53.0); HGB 17.1 gm/dL (13.0-17.5); Lymphocytes # (A) 0.9 k/uL (1.0-4.8); Lymphocytes % (A) 13 %; MCH 35.1 pg (25.0-35.0); MCHC 34.9 g/dL (31.0-37.0); MCV 100.6 fL (80.0-100.0); Mean Platelet Volume 6.5; Monocytes # (A) 0.4 k/uL (0-1.0); Monocytes % (A) 6 %; Neutrophils % (A) 76 %; Platelet Count 172 k/uL (150-450); RBC 4.86 m/uL (4.30-5.90); RDW 12.1 % (11.5-15.5); WBC 6.6 k/uL (3.8-10.6)
[2019-08-02] MEDS ORDERED: MORPHINE SULFATE 4 MG/ML SYRINGE IV PRN (11:47)
[2019-08-02] MEDS ORDERED: ONDANSETRON 4 MG/2 ML VIAL IVP PRN (11:47)
[2019-08-02] MEDS ORDERED: NALOXONE 0.4 MG/ML 1 ML VIAL IV PRN (11:47)
[2019-08-02 11:49] LABS: Appearance,Urine Cloudy (Clear); Bacteria,Urine Rare /hpf; Bilirubin,Urine Negative (Negative); Blood,Urine Negative (Negative); Color,Urine Yellow; Glucose,Urine (UA) Negative (Negative); Hyaline Casts,Urine 2 /lpf (0-2); Ketones,Urine 1+ (Negative); Leukocyte Esterase,Urine Negative (Negative); Mucus,Urine Many /hpf; Nitrite,Urine Negative (Negative); Protein,Urine Trace (Negative); RBC,Urine <1 /hpf (0-5); Specific Gravity,Urine 1.015 (1.001-1.035); Urobilinogen,Urine <2.0 mg/dL (<2.0)
[2019-08-02 12:01] LABS: ALT 54 U/L (21-72); AST 45 U/L (17-59); African American GFR (CKD) >90 (>60 ml/min/1.73 sqM); Albumin 4.7 g/dL (3.5-5.0); Alcohol <10 mg/dL; Alkaline Phosphatase 46 U/L (38-126); Anion Gap 13 mmol/L; Blood Urea Nitrogen 8 mg/dL (9-20); Calcium 9.7 mg/dL (8.4-10.2); Carbon Dioxide 20 mmol/L (22-30); Chloride 104 mmol/L (98-107); Glucose 112 mg/dL (74-99); Potassium 3.8 mmol/L (3.5-5.1); Sodium 137 mmol/L (137-145); Total Bilirubin 1.5 mg/dL (0.2-1.3); Total Protein 7.7 g/dL (6.3-8.2)
[2019-08-02 12:01] LABS: Amphetamine Screen,Urine Not Detected (NotDetected); Barbiturate Screen,Urine Not Detected (NotDetected); Benzodiazepines Screen,Urine Detected (NotDetected); Cocaine Screen,Urine Not Detected (NotDetected); Methadone Screen, Urine Not Detected (NotDetected); Opiate Screen,Urine Detected (NotDetected); Oxycodone Screen, Urine Not Detected (NotDetected); Phencyclidine Screen,Urine Not Detected (NotDetected); Tricyclic Antidepressant,Urine Not Detected (NotDetected); Urn Cannabinoid Scrn Detected (NotDetected)
--- NOTE | 2019-08-02 12:08 | XR ---
EXAMINATION TYPE: XR KUB DATE OF EXAM: 08/02/2019 COMPARISON: 06/13/2018 HISTORY: Pain TECHNIQUE: One view abdominal series FINDINGS: The osseous structures are intact. The bowel gas pattern is nonspecific. Lung bases are clear. IMPRESSION: 1. Nonspecific abdomen. Occasional air-fluid levels can be seen with ileus or enteritis correlate cl inically.
[2019-08-02] MEDS: SODIUM CHLORIDE 0.9% 1,000 ML IV SCH ×2 (12:37→19:30)
[2019-08-02 14:00] VITALS: BMI 33.2
[2019-08-02] MEDS ORDERED: amLODIPine 10 MG TAB PO SCH (15:30)
[2019-08-02 15:47] VITALS: RESP 18
[2019-08-02] MEDS ORDERED: ALBUTEROL NEBULIZED 2.5 MG/3 ML INHALATION PRN (17:21)
--- NOTE | 2019-08-02 17:21 | P.HPIM ---
History of Present Illness H&P Date: 08/02/19 Chief Complaint: Epigastric pain 38-year-old male with PMH of pancreatitis and alcohol abuse presents the ED for epigastric discomfort. He was admitted on 07/31/2019 for pancreatitis after binge drinking over the last 2 days because of his birthday. He did reported some chest discomfort at that time, described as midsternal, sharp and stabbing in nature. In the ED, he was noted to have a pulse in the 100s and BP of 162/103. Comprehensive workup was done at that time including d-dimer which was negative. Lipase was elevated at 368. Troponin was less than 0.012, EKG showing normal sinus rhythm and sinus arrhythmia. CTA of the chest was done at that time which ruled out PE and confirmed findings of acute pancreatitis. Chest x-ray was negative. Patient was admitted at that time to rule out acute coronary syndrome. Cardiology was consulted and recommended echocardiogram. Yesterday, patient states that he had personal matters to attend to as he was close to losing his house. He signed out AGAINST MEDICAL ADVICE at that time. He presents again today for similar symptoms of epigastric discomfort that is less severe than previous admission. Patient is requesting discharge today with his antihypertensive medications. He does not have a primary care doctor. In the ED, he was noted to be hypertensive with BP 141/105 and pulse of 94. CBC showed a macrocytosis. CMP showed a bicarbonate of 20, glucose of 112, total bilirubin of 1.5. Troponin was 0.042, EKG showing sinus tachycardia. Lipase 421, KUB showing nonspecific abdomen. Patient is readmitted for pancreatitis. Review of Systems Pertinent positives and negatives as discussed in HPI, a complete review of systems was performed and all other systems are negative. Past Medical History Past Medical History: Asthma, Hypertension Additional Past Medical History / Comment(s): Pt recently admitted to [facility] on 08/01/19 with pancreatitis, uncontrolled HTN, elevated troponin. He left AMA. Other hx: pancreatitis, alcohol abuse, laryngitis History of Any Multi-Drug Resistant Organisms: None Reported Past Surgical History: No Surgical Hx Reported Past Anesthesia/Blood Transfusion Reactions: Unable to Obtain Additional Past Anesthesia/Blood Transfusion Reaction / Comment(s): Pt has never had surgery Smoking Status: Current every day smoker - Past Family History Mother Family Medical History: Rheumatoid Arthritis (RA) Father Family Medical History: Asthma Additional Family Medical History / Comment(s): Father of an asthma attack which cause a cardiac arrest. Medications and Allergies Home Medications Medication Instructions Recorded Confirmed Type Albuterol Inhaler [Ventolin Hfa 1 - 2 puff INHALATION RT-Q6H PRN 03/12/17 08/02/19 History Inhaler] Albuterol Nebulized [Ventolin 2.5 mg INHALATION RT-QID PRN 07/31/19 08/02/19 History Nebulized] Famotidine [Pepcid] 40 mg PO BID 07/31/19 08/02/19 History Allergies Allergy/AdvReac Type Severity Reaction Status Date / Time No Known Allergies Allergy Verified 08/02/19 11:11 Physical Exam Vitals: Vital Signs Temp Pulse Pulse Resp BP BP Pulse Ox 08/02/19 16:50 97.5 F L 89 18 163/96 97 08/02/19 15:46 98 F 86 18 149/107 98 08/02/19 15:30 88 16 155/115 98 08/02/19 13:40 72 18 148/102 97 08/02/19 12:00 94 15 141/105 98 08/02/19 11:30 111 H 20 135/99 96 08/02/19 11:18 115 H 25 H 97 08/02/19 10:41 97.7 F 132 H 20 129/95 98 Intake and Output 08/02/19 08/02/19 08/02/19 06:59 14:59 22:59 Other: Weight 102.058 kg General: [non toxic], [severe distress], [appears at stated age] Derm: [warm], [dry] Head: [atraumatic], [normocephalic], [symmetric] Eyes: [EOMI], [no lid lag], [anicteric sclera] Mouth: [no lip lesion], [mucus membranes moist] Cardiovascular: [S1S2 reg], [tachycardic], [positive DP pulse bilateral] Lungs: [CTA bilateral], [no rhonchi, no rales] , [no accessory muscle use] Abdominal: [soft], [tenderness to palpation in the epigastric area without rebound], [no guarding], [no appreciable organomegaly] Ext: [no gross muscle atrophy], [no edema], [no contractures] Neuro: [no focal neuro deficits] Psych: [Alert], [oriented], [appropriate affect] Results CBC & Chem 7: 08/02/19 11:25 08/02/19 11:25 Labs: Abnormal Lab Results - Last 24 Hours (Table) 08/02/19 08/02/19 08/02/19 Range/Units 11:05 11:25 11:25 MCV 100.6 H (80.0-100.0) fL MCH 35.1 H (25.0-35.0) pg Lymphocytes # 0.9 L (1.0-4.8) k/uL Carbon Dioxide 20 L (22-30) mmol/L BUN 8 L (9-20) mg/dL Glucose 112 H (74-99) mg/dL Total Bilirubin 1.5 H (0.2-1.3) mg/dL Troponin I (0.000-0.034) ng/mL Lipase 421 H (23-300) U/L Urine Protein Trace H (Negative) Urine Ketones 1+ H (Negative) Urine Bacteria Rare H (None) /hpf Urine Mucus Many H (None) /hpf Urine Opiates Screen Detected H (NotDetected) U Benzodiazepines Scrn Detected H (NotDetected) U Marijuana (THC) Screen Detected H (NotDetected) 08/02/19 Range/Units 11:25 MCV (80.0-100.0) fL MCH (25.0-35.0) pg Lymphocytes # (1.0-4.8) k/uL Carbon Dioxide (22-30) mmol/L BUN (9-20) mg/dL Glucose (74-99) mg/dL Total Bilirubin (0.2-1.3) mg/dL Troponin I 0.042 H* (0.000-0.034) ng/mL Lipase (23-300) U/L Urine Protein (Negative) Urine Ketones (Negative) Urine Bacteria (None) /hpf Urine Mucus (None) /hpf Urine Opiates Screen (NotDetected) U Benzodiazepines Scrn (NotDetected) U Marijuana (THC) Screen (NotDetected) Thrombosis Risk Factor Assmnt - Choose All That Apply Any of the Below Risk Factors Present?: Yes Each Factor Represents 1 point: Obesity (BMI >25) Other Risk Factors: No Other congenital or acquired thrombophilia - If yes, enter type in comment: No Thrombosis Risk Factor Assessment Total Risk Factor Score: 1 Thrombosis Risk Factor Assessment Level: Low Risk Assessment and Plan Assessment: Assessment and plan Acute pancreatitis rule out acute coronary syndrome with troponin elevation Troponin elevation likely due to demand ischemia Alcohol abuse with risk of withdrawal Asthma, well-controlled Hypertensive urgency Resolved: Leukopenia Lipase 421. Troponin less than 0.042, EKG showing sinus tachycardia. D-dimer negative, low concerns for PE, CTA chest ruled out PE during previous encounter. Plans: Clear liquid diet and advance diet as tolerated. Protonix IV daily. Continue normal saline at 100 mL/h. Pain control with Dilaudid as needed. Zofran as needed for nausea or vomiting. Repeat amylase and lipase in the morning. Trend troponin/EKG to rule out ACS. Telemetry monitoring. Follow cardiology consultation. Troponin is 0.042 with EKG showing sinus tachycardia. Likely related to demand ischemia from hypertensive urgency. Plans: Cardiology consultation. Ensure nhung quate EP control. Trend 2 Trop/EKG to rule out ACS. Plans: CIWA protocol. Ativan as needed for alcohol withdrawal. Start thiamine. Stable. Plans: Albuterol neb as needed for shortness of breath and wheezing. BP 163/96 on admission. Possibly related to pain. Plans: Start amlodipine 10 mg by mouth daily. Start Coreg 3.125 mg by mouth twice a day. Ensure adequate pain control. Monitor vitals, adjust medications as necessary. [BP continues to be elevated, started on antihypertensive medication. Cardiology evaluation pending. Likely DC in 2-3 days when pain is better controlled and able to tolerate oral intake.]
[2019-08-02] MEDS ORDERED: HYDROmorphone 1 MG/ML 1 ML SYRINGE IV PRN (17:22)
[2019-08-02] MEDS ORDERED: CARVEDILOL 3.125 MG TAB PO SCH (17:30)
[2019-08-02] MEDS ORDERED: FAMOTIDINE 20 MG TAB PO SCH (18:30)
[2019-08-02 19:38] VITALS: BP 161/106; PULSE 91; TEMP 97.6
== END 2019-08-02 20:22 | disposition left against medical advice (07) | DRG 439 ==
LOC: EC 10:39 → 3SCARD 10:55
PROVIDERS: ADMIT Family Medicine; ATTEND Family Medicine
DX: K85.90 Acute pancreatitis without necrosis or infection, unspecified (principal); I24.8 Other forms of acute ischemic heart disease; Z82.41 Family history of sudden cardiac death; D75.89 Other specified diseases of blood and blood-forming organs; F10.10 Alcohol abuse, uncomplicated; F17.210 Nicotine dependence, cigarettes, uncomplicated; I10 Essential (primary) hypertension; I16.0 Hypertensive urgency; J45.909 Unspecified asthma, uncomplicated; Z79.899 Other long term (current) drug therapy; Z82.5 Family history of asthma and other chronic lower respiratory diseases; Z82.61 Family history of arthritis
CPT/HCPCS: 36415; 74018; 80053; 80306; 80320; 81001; 83690; 84484; 85025; 93005; 96361; 96374; 96376; 99285

== ENCOUNTER 2019-10-12 16:39 | Emergency (ER) | payer OTHER ==
[2019-10-12] MEDS ORDERED: ONDANSETRON ODT 4 MG TAB PO STA (16:53)
[2019-10-12] MEDS ORDERED: LORazepam 1 MG TAB PO STA (16:53)
--- NOTE | 2019-10-12 16:53 | ED ---
Chest Pain HPI - General Chief Complaint: Chest Pain Stated Complaint: Chest pain, TAMRA Time Seen by Provider: 10/12/19 16:46 Source: patient, RN notes reviewed, old records reviewed Mode of arrival: ambulatory Limitations: no limitations - History of Present Illness Initial Comments: This is a 31-year-old male presented for evaluation of chest pain. Patient doesn't to drinkinglast night as well as taking lately mildly ecstasy or MDMA. He denies as being a normal occurrence was unable to sleep well tonight and into today. He is still very anxious. Otherwise no fevers no cough no congestion or shortness of breath patient denies any chest pain but statesheart has occasionally been racing decreased appetite decreased oral intake, no nausea vomiting or diarrhea. No fevers. Patient currently is without chest pain MD Complaint: chest pain, other (anxiety reaction secondary to possible MDMA use and withdrawal) -: days(s) Onset: during rest, during exertion Pain Location: other (no chest pain) Pain Radiation: none Severity: mild Consistency: constant Improves With: nothing Worsens With: nothing Context: new medications (illicit drug use) Anginal Symptoms: nausea Other Symptoms: palpitations Treatments Prior to Arrival: none - Related Data Home Medications Medication Instructions Recorded Confirmed Albuterol Inhaler [Ventolin Hfa 1 - 2 puff INHALATION RT-Q6H PRN 03/12/1701/16 Inhaler] Albuterol Nebulized [Ventolin 2.5 mg INHALATION RT-QID PRN 07/31/19 08/02/19 Nebulized] Famotidine [Pepcid] 40 mg PO BID 07/31/19 08/02/19 Previous Rx's Medication Instructions Recorded Carvedilol [Coreg] 3.125 mg PO BID-W/MEALS #60 tab 08/02/19 amLODIPine [Norvasc] 10 mg PO DAILY #30 tab 08/02/19 Allergies Allergy/AdvReac Type Severity Reaction Status Date / Time No Known Allergies Allergy Verified 10/12/19 16:43 Review of Systems ROS Statement: Those systems with pertinent positive or pertinent negative responses have been documented in the HPI. ROS Other: All systems not noted in ROS Statement are negative. EKG Findings - EKG Comments: EKG Findings:: EKG shows sinus arrhythmia prednisone cupula 40, QRS 100, QTC 449 Past Medical History Past Medical History: Asthma, Hypertension Additional Past Medical History / Comment(s): pancreatitis, laryngitis History of Any Multi-Drug Resistant Organisms: None Reported Past Surgical History: No Surgical Hx Reported Past Anesthesia/Blood Transfusion Reactions: Unable to Obtain Additional Past Anesthesia/Blood Transfusion Reaction / Comment(s): Pt has never had surgery Past Psychological History: Anxiety Smoking Status: Current every day smoker Past Alcohol Use History: Occasional Past Drug Use History: Marijuana - Past Family History Mother Family Medical History: Rheumatoid Arthritis (RA) Father Family Medical History: Asthma Additional Family Medical History / Comment(s): Father of an asthma attack which cause a cardiac arrest. General Exam Limitations: no limitations General appearance: alert, in no apparent distress, anxious Head exam: Present: atraumatic, normocephalic, normal inspection Eye exam: Present: normal appearance, PERRL, EOMI. Absent: scleral icterus, conjunctival injection, periorbital swelling ENT exam: Present: normal exam, mucous membranes moist Neck exam: Present: normal inspection. Absent: tenderness, meningismus, lymphadenopathy Respiratory exam: Present: normal lung sounds bilaterally. Absent: respiratory distress, wheezes, rales, rhonchi, stridor Cardiovascular Exam: Present: normal rhythm, tachycardia, normal heart sounds. Absent: systolic murmur, diastolic murmur, rubs, gallop, clicks GI/Abdominal exam: Present: soft, normal bowel sounds. Absent: distended, tenderness, guarding, rebound, rigid Extremities exam: Present: normal inspection, full ROM, normal capillary refill. Absent: tenderness, pedal edema, joint swelling, calf tenderness Back exam: Present: normal inspection Neurological exam: Present: alert, oriented X3, CN II-XII intact Psychiatric exam: Present: normal affect, normal mood Skin exam: Present: warm, dry, intact, normal color. 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 Patient can be disc harged high blood pressure which will refill patient's prescription Disposition Clinical Impression: Hypertension, Panic attack Disposition: HOME SELF-CARE Condition: Good Instructions (If sedation given, give patient instructions): Anxiety (ED), Hypertension (ED) Is patient prescribed a controlled substance at d/c from ED?: No Referrals: None,Stated [Primary Care Provider] - 1-2 days
[2019-10-12 17:40] VITALS: RESP 18
[2019-10-12] MEDS ORDERED: amLODIPine 10 MG TAB PO STA (17:42)
[2019-10-12] MEDS ORDERED: CARVEDILOL 3.125 MG TAB PO STA (17:43)
[2019-10-12 18:54] VITALS: BP 157/98; PULSE 75; TEMP 98.3
== END 2019-10-12 18:48 | disposition home or self-care (01) ==
LOC: EC 16:39
DX: I10 Essential (primary) hypertension (principal); F41.0 Panic disorder [episodic paroxysmal anxiety]; J45.909 Unspecified asthma, uncomplicated; F17.200 Nicotine dependence, unspecified, uncomplicated; Z79.899 Other long term (current) drug therapy
CPT/HCPCS: 93005; 99285

== ENCOUNTER 2019-11-10 04:50 | Emergency (ER) | payer OTHER ==
[2019-11-10 05:04] VITALS: TEMP 97.6
[2019-11-10 05:31] VITALS: RESP 18
[2019-11-10 05:43] LABS: Basophils % (A) 1 %; Eosinophils # (A) 0.2 k/uL (0-0.7); Eosinophils % (A) 3 %; HCT 45.6 % (39.0-53.0); HGB 16.2 gm/dL (13.0-17.5); Lymphocytes # (A) 1.9 k/uL (1.0-4.8); Lymphocytes % (A) 42 %; MCH 34.8 pg (25.0-35.0); MCHC 35.5 g/dL (31.0-37.0); MCV 98.1 fL (80.0-100.0); Mean Platelet Volume 7.1; Monocytes # (A) 0.3 k/uL (0-1.0); Monocytes % (A) 7 %; Neutrophils % (A) 45 %; Platelet Count 178 k/uL (150-450); RBC 4.65 m/uL (4.30-5.90); RDW 11.7 % (11.5-15.5); WBC 4.5 k/uL (3.8-10.6)
[2019-11-10 05:49] LABS: INR 0.9 (<1.2); Partial Thromboplastin Time 25.4 sec (22.0-30.0); Prothrombin Time 10.2 sec (9.0-12.0)
[2019-11-10 05:50] LABS: ALT 58 U/L (4-49); AST 63 U/L (17-59); African American GFR (CKD) >90 (>60 ml/min/1.73 sqM); Albumin 4.5 g/dL (3.5-5.0); Alkaline Phosphatase 42 U/L (38-126); Anion Gap 12 mmol/L; Blood Urea Nitrogen 9 mg/dL (9-20); Calcium 9.7 mg/dL (8.4-10.2); Carbon Dioxide 23 mmol/L (22-30); Chloride 105 mmol/L (98-107); Glucose 93 mg/dL (74-99); Magnesium 1.7 mg/dL (1.6-2.3); Non-African American GFR(CKD) >90 (>60 ml/min/1.73 sqM); Potassium 3.4 mmol/L (3.5-5.1); Sodium 140 mmol/L (137-145); Total Bilirubin 0.9 mg/dL (0.2-1.3); Total Protein 7.1 g/dL (6.3-8.2)
--- NOTE | 2019-11-10 06:18 | XR ---
EXAM: XR Chest, 2 Views CLINICAL HISTORY: Chest Pain TECHNIQUE: Frontal and lateral views of the chest. COMPARISON: 07/31/2019. FINDINGS: Lungs: Unremarkable. No consolidation. Pleural space: Unremarkable. No pneumothorax. Heart: Unremarkable. No cardiomegaly. Mediastinum: Unremarkable. Bones/joints: Unremarkable. IMPRESSION: No radiographic evidence of acute cardiopulmonary process.
--- NOTE | 2019-11-10 07:07 | ED ---
Chest Pain HPI - General Chief Complaint: Chest Pain Stated Complaint: Chest Pain Time Seen by Provider: 11/10/19 04:54 Source: patient Mode of arrival: ambulatory Limitations: no limitations - History of Present Illness Initial Comments: But is a 39-year-old gentleman who presents the ER today for evaluation of chest pain that has been persistent throughout his entire evening. Chest pain began approximately 6 hours prior to arrival, sharp worse with deep inspiration. Patient reports he has a history of hypertension but quit drinking and was eating healthier his blood pressure improved and he stopped taking meds years ago however recently he has been drinking up to a fifth a day. Patient also smokes cigarettes. She denies any family history of early heart disease. - Related Data Home Medications Medication Instructions Recorded Confirmed Albuterol Inhaler [Ventolin Hfa 1 - 2 puff INHALATION RT-Q6H PRN 03/12/17 08/02/19 Inhaler] Albuterol Nebulized [Ventolin 2.5 mg INHALATION RT-QID PRN 07/31/19 08/02/19 Nebulized] Famotidine [Pepcid] 40 mg PO BID 07/31/19 08/02/19 Previous Rx's Medication Instructions Recorded Carvedilol [Coreg] 3.125 mg PO BID-W/MEALS #60 tab 10/12/19 amLODIPine [Norvasc] 10 mg PO DAILY #30 tab 10/12/19 Allergies Allergy/AdvReac Type Severity Reaction Status Date / Time No Known Allergies Allergy Verified 11/10/19 05:04 Review of Systems ROS Statement: Those systems with pertinent positive or pertinent negative responses have been documented in the HPI. ROS Other: All systems not noted in ROS Statement are negative. EKG Findings - EKG Comments: EKG Findings:: EKG is obtained due to complaint chest pain, EKG obtained at 4:57 AM, rate is 96 rhythm sinus normal axis, normal intervals, NV 140, QRS 90, QTC is 469 there are no acute ST elevations or depressions there is no evidence of acute ischemia or infarction. Past Medical History Past Medical History: Asthma, Hypertension Additional Past Medical History / Comment(s): pancreatitis, laryngitis History of Any Multi-Drug Resistant Organisms: None Reported Past Surgical History: No Surgical Hx Reported Past Anesthesia/Blood Transfusion Reactions: Unable to Obtain Additional Past Anesthesia/Blood Transfusion Reaction / Comment(s): Pt has never had surgery Past Psychological History: Anxiety Smoking Status: Current every day smoker Past Alcohol Use History: Abuse, Daily Past Drug Use History: Marijuana - Past Family History Mother Family Medical History: Rheumatoid Arthritis (RA) Father Family Medical History: Asthma Additional Family Medical History / Comment(s): Father of an asthma attack which cause a cardiac arrest. General Exam - General Exam Comments Initial Comments: Physical Exam GENERAL: Patient is well-developed and well-nourished. Patient is nontoxic and well- hydrated and is in no distress. HENT: Normocephalic, Atraumatic. EYES: PERRL, EOMI PULMONARY: Unlabored respirations. No audible rales rhonchi or wheezing was noted. CARDIOVASCULAR: There is a regular rate and rhythm without any murmurs gallops or rubs. Strong pulses bilateral radial ABDOMEN: Soft and nontender with normal bowel sounds. SKIN: Skin is clear with no lesions or rashes and otherwise unremarkable. : Deferred NEUROLOGIC: Patient is alert and oriented x3. Moving all extremities spontaneously MUSCULOSKELETAL: Normal extremities with adequate strength and full range of motion. No lower extremity swelling or edema. No calf tenderness. PSYCHIATRIC: Normal psychiatric evaluation. Limitations: no limitations Course Vital Signs 11/10/19 11/10/19 11/10/19 04:59 05:31 06:04 Temperature 97.6 F Pulse Rate 96 Respiratory 22 18 Rate Blood Pressure 187/124 145/97 O2 Sat by Pulse 98 100 Oximetry 11/10/19 07:45 Temperature Pulse Rate 88 Respiratory 18 Rate Blood Pressure 147/94 O2 Sat by Pulse 98 Oximetry Chest Pain MDM - [facility] The patient was seen and evaluated, history is obtained from the patient Cardiac workup as well as a lipase the patient is an alcoholic with history of pancreatitis Given the patient's symptoms have been persistent for greater than 4 hours I do feel single troponin is adequate to rule out any acute cardiac pathology. Troponin was negative D dimer is not elevated lipase was not elevated. Discussed the patient expresses relief. I did discuss with the patient the importance of decreasing his alcohol intake, returning to a healthy diet and stopping smoking. Patient states that he'll work on not drinking but he doesn't think to quit smoking despite knowing it is a risk factor for heart disease and knowing that his father of an asthma attack as 50s. All questions pertaining care were answered return parameters were discussed the patient was discharged home in stable condition. Disposition Clinical Impression: Atypical chest pain, Tobacco abuse Disposition: HOME SELF-CARE Condition: Stable Instructions (If sedation given, give patient instructions): Chest Pain (ED) Is patient prescribed a controlled substance at d/c from ED?: No Referrals: None,Stated [Primary Care Provider] - 1-2 days
[2019-11-10 07:46] VITALS: BP 147/94; PULSE 88
== END 2019-11-10 07:20 | disposition home or self-care (01) ==
LOC: EC 04:50
DX: R07.1 Chest pain on breathing (principal); Z72.0 Tobacco use; J45.909 Unspecified asthma, uncomplicated; Z79.899 Other long term (current) drug therapy
CPT/HCPCS: 36415; 71046; 80053; 83690; 83735; 84484; 85025; 85379; 85610; 85730; 93005; 99284

== ENCOUNTER 2019-11-27 02:34 | Inpatient (IN) | payer OTHER ==
[2019-11-27] MEDS ORDERED: MORPHINE SULFATE 4 MG/ML SYRINGE IV STA (03:18)
[2019-11-27] MEDS ORDERED: SODIUM CHLORIDE 0.9% 1,000 ML IV STA (03:18)
[2019-11-27 03:39] LABS: Basophils % (A) 0 %; Eosinophils # (A) 0.1 k/uL (0-0.7); Eosinophils % (A) 3 %; HCT 47.2 % (39.0-53.0); HGB 16.4 gm/dL (13.0-17.5); Lymphocytes # (A) 2.1 k/uL (1.0-4.8); Lymphocytes % (A) 37 %; MCHC 34.8 g/dL (31.0-37.0); MCV 97.8 fL (80.0-100.0); Mean Platelet Volume 6.6; Monocytes # (A) 0.3 k/uL (0-1.0); Monocytes % (A) 6 %; Neutrophils % (A) 53 %; Platelet Count 193 k/uL (150-450); RBC 4.83 m/uL (4.30-5.90); RDW 11.9 % (11.5-15.5); WBC 5.7 k/uL (3.8-10.6)
[2019-11-27 03:48] LABS: ALT 81 U/L (4-49); AST 103 U/L (17-59); African American GFR (CKD) >90 (>60 ml/min/1.73 sqM); Albumin 4.4 g/dL (3.5-5.0); Alkaline Phosphatase 46 U/L (38-126); Amylase 95 U/L (30-110); Anion Gap 10 mmol/L; Blood Urea Nitrogen 11 mg/dL (9-20); Calcium 8.4 mg/dL (8.4-10.2); Carbon Dioxide 23 mmol/L (22-30); Chloride 108 mmol/L (98-107); Glucose 105 mg/dL (74-99); Non-African American GFR(CKD) >90 (>60 ml/min/1.73 sqM); Potassium 3.9 mmol/L (3.5-5.1); Sodium 141 mmol/L (137-145); Total Bilirubin 0.6 mg/dL (0.2-1.3); Total Protein 6.9 g/dL (6.3-8.2)
[2019-11-27 04:07] LABS: Alcohol 181 mg/dL
[2019-11-27] MEDS ORDERED: NALOXONE 0.4 MG/ML 1 ML VIAL IV PRN (04:18)
[2019-11-27] MEDS ORDERED: ONDANSETRON 4 MG/2 ML VIAL IVP PRN (04:18)
[2019-11-27] MEDS ORDERED: LORazepam 2 MG/ML INJ IV PRN ×2 (04:20)
[2019-11-27] MEDS ORDERED: THIAMINE 100 MG/ML 2 ML VIAL IM STA (04:20)
[2019-11-27] MEDS: SODIUM CHLORIDE 0.9% 1,000 ML IV SCH ×4 (04:37→20:15)
[2019-11-27] MEDS: HYDROmorphone 1 MG/ML 1 ML SYRINGE IVP PRN ×6 (04:39→23:08)
[2019-11-27] MEDS ORDERED: SODIUM CHLORIDE 0.9% 2,000 ML IV ONE (04:43)
--- NOTE | 2019-11-27 04:46 | ED ---
Abdominal Pain HPI - General Chief Complaint: Abdominal Pain Stated Complaint: Abd Pain Time Seen by Provider: 11/27/19 02:56 Source: patient Mode of arrival: ambulatory Limitations: no limitations - History of Present Illness Initial Comments: Nico is a 39-year-old alcoholic male with a history of pancreatitis who presents the ER today for evaluation of burning epigastric abdominal pain which radiates to his back and is identical to previous episodes of pancreatitis. Patient reports he's been trying to decrease his drinking, he had decreased his drinking only a few shots a day but was concerned about withdrawal so he took a few extra shots yesterday he then developed severe burning epigastric abdominal pain and admits that he spent drinking heavier propagated a due to the pain. - Related Data Home Medications Medication Instructions Recorded Confirmed Albuterol Inhaler [Ventolin Hfa 1 - 2 puff INHALATION RT-Q6H PRN 03/12/17 08/02/19 Inhaler] Albuterol Nebulized [Ventolin 2.5 mg INHALATION RT-QID PRN 07/31/19 08/02/19 Nebulized] Famotidine [Pepcid] 40 mg PO BID 07/31/19 08/02/19 Previous Rx's Medication Instructions Recorded Carvedilol [Coreg] 3.125 mg PO BID-W/MEALS #60 tab 10/12/19 amLODIPine [Norvasc] 10 mg PO DAILY #30 tab 10/12/19 Allergies Allergy/AdvReac Type Severity Reaction Status Date / Time No Known Allergies Allergy Verified 11/27/19 02:50 Review of Systems ROS Statement: Those systems with pertinent positive or pertinent negative responses have been documented in the HPI. ROS Other: All systems not noted in ROS Statement are negative. Past Medical History Past Medical History: Asthma, Hypertension Additional Past Medical History / Comment(s): pancreatitis, laryngitis History of Any Multi-Drug Resistant Organisms: None Reported Past Surgical History: No Surgical Hx Reported Past Anesthesia/Blood Transfusion Reactions: Unable to Obtain Additional Past Anesthesia/Blood Transfusion Reaction / Comment(s): Pt has never had surgery Past Psychological History: Anxiety Smoking Status: Current every day smoker Past Alcohol Use History: Abuse, Daily Past Drug Use History: Marijuana - Past Family History Mother Family Medical History: Rheumatoid Arthritis (RA) Father Family Medical History: Asthma Additional Family Medical History / Comment(s): Father of an asthma attack which cause a cardiac arrest. General Exam - General Exam Comments Initial Comments: Physical Exam GENERAL: Patient is well-developed and well-nourished. Appears uncomfortable HENT: Normocephalic, Atraumatic. EYES: PERRL, EOMI PULMONARY: Unlabored respirations. CARDIOVASCULAR: RRR Warm and well perfused extremities ABDOMEN: Non-distended Tenderness to palpation in the epigastrium No bruising in the abdomen or flank SKIN: No rashes or bruising : Deferred NEUROLOGIC: Alert and oriented Normal speech Normal gait MUSCULOSKELETAL: Moving all extremities with no apparent injury PSYCHIATRIC: No SI/HI Limitations: no limitations Course Vital Signs 11/27/19 02:45 Temperature 97.6 F Pulse Rate 107 H Respiratory 20 Rate Blood Pressure 143/83 O2 Sat by Pulse 99 Oximetry Medical Decision Making - Medical Decision Making Patient was seen and evaluated history is obtained from the patient and medical record History and physical exam are concerning for recurrent alcoholic pancreatitis next and labs imaging IV fluids and pain medications were ordered Labs consistent with acute alcoholic pancreatitis Patient was reevaluated had persistent pain after morphine, Dilaudid additional IV fluids will be ordered to care was discussed with admitting physician Dr. Mahajan of the [facility] who agrees with plan for admission for alcoholic pancreatitis with plan for pain control, IV fluids and medications for alcohol withdrawal. - Lab Data Result diagrams: 11/27/19 03:07 11/27/19 03:07 Lab Results 11/27/19 11/27/19 Range/Units 03:07 03:07 WBC 5.7 (3.8-10.6) k/uL RBC 4.83 (4.30-5.90) m/uL Hgb 16.4 (13.0-17.5) gm/dL Hct 47.2 (39.0-53.0) % MCV 97.8 (80.0-100.0) fL MCH 34.0 (25.0-35.0) pg MCHC 34.8 (31.0-37.0) g/dL RDW 11.9 (11.5-15.5) % Plt Count 193 (150-450) k/uL Neutrophils % 53 % Lymphocytes % 37 % Monocytes % 6 % Eosinophils % 3 % Basophils % 0 % Neutrophils # 3.0 (1.3-7.7) k/uL Lymphocytes # 2.1 (1.0-4.8) k/uL Monocytes # 0.3 (0-1.0) k/uL Eosinophils # 0.1 (0-0.7) k/uL Basophils # 0.0 (0-0.2) k/uL Sodium 141 (137-145) mmol/L Potassium 3.9 (3.5-5.1) mmol/L Chloride 108 H (98-107) mmol/L Carbon Dioxide 23 (22-30) mmol/L Anion Gap 10 mmol/L BUN 11 (9-20) mg/dL Creatinine 0.91 (0.66-1.25) mg/dL Est GFR (CKD-EPI)AfAm >90 (>60 ml/min/1.73 sqM) Est GFR (CKD-EPI)NonAf >90 (>60 ml/min/1.73 sqM) Glucose 105 H (74-99) mg/dL Calcium 8.4 (8.4-10.2) mg/dL Total Bilirubin 0.6 (0.2-1.3) mg/dL AST 103 H (17-59) U/L ALT 81 H (4-49) U/L Alkaline Phosphatase 46 (38-126) U/L Total Protein 6.9 (6.3-8.2) g/dL Albumin 4.4 (3.5-5.0) g/dL Amylase 95 (30-110) U/L Lipase 1155 H (23-300) U/L Serum Alcohol 181 mg/dL Disposition Clinical Impression: Pancreatitis, Alcohol abuse Disposition: ADMITTED IP TO THIS [facility] Condition: Serious
[2019-11-27] MEDS ORDERED: LORazepam 2 MG/ML INJ IV STA (06:22)
--- NOTE | 2019-11-27 07:46 | P.HPIM ---
History of Present Illness H&P Date: 11/27/19 The patient is a 39 yo M with a PMH of alcohol abuse presents to the ED with epigastric pain, nausea, and vomiting. The patient notes that pain is epigastric, radiating to the back, 10/10, alleviated by leaning forward. He notes continued alcohol abuse, drinking 1/2 gallon of vodka daily with last d rink last night at around 8 pm. He reports one episode of NBNB vomiting. Denied hematemesis, hematochezia, or melena. Denied chest pain, SOB, fever, or chills. He underwent an extensive evaluation in the ED w/ WBC count 5.7, Hgb 16.4, plt 193, lipase 1155, BUN 11, Cr 0.91, AST 103, ALT 81. Patient notes he is scheduled to start at [place] for EtOH abuse on . Review of Systems Pertinent positives and negatives as discussed in HPI, a complete review of sys tems was performed and all other systems are negative. Past Medical History Past Medical History: Asthma, Hypertension Additional Past Medical History / Comment(s): pancreatitis, laryngitis History of Any Multi-Drug Resistant Organisms: None Reported Past Surgical History: No Surgical Hx Reported Past Anesthesia/Blood Transfusion Reactions: Unable to Obtain Additional Past Anesthesia/Blood Transfusion Reaction / Comment(s): Pt has never had surgery Past Psychological History: Anxiety Smoking Status: Current every day smoker Past Alcohol Use History: Abuse, Daily Past Drug Use History: Marijuana - Past Family History Mother Family Medical History: Rheumatoid Arthritis (RA) Father Family Medical History: Asthma Additional Family Medical History / Comment(s): Father of an asthma attack which cause a cardiac arrest. Medications and Allergies Home Medications Medication Instructions Recorded Confirmed Type Carvedilol [Coreg] 3.125 mg PO BID-W/MEALS #60 tab 10/12/19 11/27/19 Rx amLODIPine [Norvasc] 10 mg PO DAILY #30 tab 10/12/19 11/27/19 Rx Allergies Allergy/AdvReac Type Severity Reaction Status Date / Time No Known Allergies Allergy Verified 11/27/19 07:16 Physical Exam Vitals: Vital Signs Temp Pulse Resp BP Pulse Ox 11/27/19 05:53 97.9 F 87 18 156/95 99 11/27/19 02:45 97.6 F 107 H 20 143/83 99 Intake and Output 11/26/19 11/27/19 11/27/19 22:59 06:59 14:59 Other: Weight 104.326 kg General: non toxic, in moderate distress from pain, appears at stated age, obese Derm: no unusual rashes/lesions no unusual ecchymoses, warm, dry Head: atraumatic, normocephalic, symmetric Eyes: EOMI, no lid lag, anicteric sclera, pupils equal round reactive to light ENT: Nose and ears atraumatic, no thrush, no pharyngeal erythema Neck: No thyromegaly, no cervical lymphadenopathy, trachea midline, supple Mouth: no lip lesion, mucus membranes moist Cardiovascular: S1S2 reg, no murmur, positive posterior tibial pulse bilateral, no edema, capillary refill less than 2 seconds Lungs: CTA bilateral, no rhonchi, no rales , no accessory muscle use Abdominal: soft, epigastric tenderness to palpation, mild guarding, no appreciable organomegaly Ext: no gross muscle atrophy, muscle strength 5 out of 5 in all 4 extremities grossly, no contractures, Neuro: CN II-XI grossly intact, light touch intact all 4 extremities, finger to nose within normal limits, Psych: Alert, oriented, appropriate affect Results CBC & Chem 7: 11/27/19 03:07 11/27/19 03:07 Labs: Abnormal Lab Results - Last 24 Hours (Table) 11/27/19 Range/Units 03:07 Chloride 108 H (98-107) mmol/L Glucose 105 H (74-99) mg/dL AST 103 H (17-59) U/L ALT 81 H (4-49) U/L Lipase 1155 H (23-300) U/L Assessment and Plan Plan: Acute alcoholic pancreatitis -Continue with pain control with Dilaudid -Nothing by mouth for now -Continue with IV fluids -CIWA protocol -Protonix -Folic acid, thiamine, MV -Monitor Lipase levels HTN -C/w Norvasc and Coreg home meds DVT prophylaxis -heparin subq The patient is admitted with an anticipated greater than 2 midnight stay for evaluation of acute pancreatitis. CODE STATUS: Full Code Discussed with: Patient Anticipated discharge date: 2-[address] [facility] [address] A total of 35 minutes was spent on the care of this complex patient more than 50% of the time was spent in counseling and care coordination.
[2019-11-27] MEDS ORDERED: amLODIPine 10 MG TAB PO SCH (09:00)
[2019-11-27] MEDS ORDERED: PANTOPRAZOLE 40 MG/10 ML VIAL IV SCH (09:00)
[2019-11-27] MEDS ORDERED: FOLIC ACID 1 MG TAB PO SCH (09:00)
[2019-11-27] MEDS: LORazepam 2 MG/ML INJ IV PRN ×3 (09:55→20:55)
[2019-11-27] MEDS: MORPHINE SULFATE 4 MG/ML SYRINGE IV PRN ×2 (11:23→19:50)
[2019-11-27 14:18] VITALS: RESP 18
[2019-11-27] MEDS ORDERED: CARVEDILOL 3.125 MG TAB PO SCH (17:30)
[2019-11-27 21:08] VITALS: TEMP 97.6
[2019-11-28] MEDS: SODIUM CHLORIDE 0.9% 1,000 ML IV SCH (01:33)
[2019-11-28] MEDS: LORazepam 2 MG/ML INJ IV PRN (01:41)
[2019-11-28] MEDS: MORPHINE SULFATE 4 MG/ML SYRINGE IV PRN (01:42)
[2019-11-28] MEDS: HYDROmorphone 1 MG/ML 1 ML SYRINGE IVP PRN (03:47)
[2019-11-28 05:15] VITALS: BP 158/93; PULSE 95
--- NOTE | 2019-11-28 11:35 | P.DS ---
Providers Date of admission: 11/27/19 04:20 Attending physician: Francis Duke MD Primary care physician: Stated None Hospital Course: Patient eloped Date of elopement: 11/28/2019 Admission diagnoses: Alcoholic pancreatitis Hospital course: The patient is a 39 yo M with a PMH of alcohol abuse presents to the ED with epigastric pain, nausea, and vomiting. The patient notes that pain is epigastric, radiating to the back, 10/10, alleviated by leaning forward. He notes continued alcohol abuse, drinking 1/2 gallon of vodka daily with last drink last night at around 8 pm. He reports one episode of NBNB vomiting. Denied hematemesis, hematochezia, or melena. Denied chest pain, SOB, fever, or chills. He underwent an extensive evaluation in the ED w/ WBC count 5.7, Hgb 16.4, plt 193, lipase 1155, BUN 11, Cr 0.91, AST 103, ALT 81. Patient notes he is scheduled to start at [place] for EtOH abuse on . Overnight patient escaped from the hospital. Per chart patient eloped with IV line. Police were notified. Patient Condition at Discharge: Serious Plan - Discharge Summary Discharge Rx Participant: No New Discharge Prescriptions: No Action Carvedilol [Coreg] 3.125 mg PO BID-W/MEALS #60 tab amLODIPine [Norvasc] 10 mg PO DAILY #30 tab Discharge Medication List Carvedilol [Coreg] 3.125 mg PO BID-W/MEALS #60 tab 10/12/19 [Rx] amLODIPine [Norvasc] 10 mg PO DAILY #30 tab 10/12/19 [Rx] Follow up Appointment(s)/Referral(s): None,Stated [Primary Care Provider] - 1 Week Discharge Disposition: Left Against Medical Advice
== END 2019-11-28 04:55 | disposition left against medical advice (07) | DRG 440 ==
LOC: EC 02:34 → 5NMEDONC 04:20 → 6NMEDSUR 14:26
PROVIDERS: ADMIT Internal Medicine; ATTEND Internal Medicine
DX: K85.20 Alcohol induced acute pancreatitis without necrosis or infection (principal); F17.200 Nicotine dependence, unspecified, uncomplicated; F10.10 Alcohol abuse, uncomplicated; F41.9 Anxiety disorder, unspecified; I10 Essential (primary) hypertension; J45.909 Unspecified asthma, uncomplicated; Z79.899 Other long term (current) drug therapy; Z82.41 Family history of sudden cardiac death; Z82.5 Family history of asthma and other chronic lower respiratory diseases; Z82.61 Family history of arthritis
CPT/HCPCS: 36415; 80053; 80320; 82150; 83690; 85025; 96361; 96372; 96374; 96375; 96376; 99285

== ENCOUNTER 2019-11-30 15:06 | Inpatient (IN) | payer OTHER ==
--- NOTE | 2019-11-30 15:58 | ED ---
Psych HPI - General Source: patient, RN notes reviewed Mode of arrival: ambulatory <Leodan Oakley - Last Filed: 11/30/19 15:57> <Gustavo Staples - Last Filed: 11/30/19 18:51> - General Chief Complaint: Psychiatric Symptoms Stated Complaint: Mental Health Time Seen by Provider: 11/30/19 15:29 - History of Present Illness Initial Comments: 39-year-old male presents emergency from for psychiatric evaluation. Patient states is very depressed, hearing voices, suicidal. Patient states he just does not want to drink anymore states that he is an alcoholic and states she is just very depressed. Patient admits to marijuana use denies any other drug use. Patient states he had a recent hospitalization for acute pancreatitis. Patient does admit that he cannot hospital 2 days ago and started drinking heavily again. He drinks at least 1/5th to half gallon of liquor daily. Patient does complain of moderate abdominal pain no nausea and diarrhea constipation. (Leodan Oakley) - Related Data Previous Rx's Medication Instructions Recorded Carvedilol [Coreg] 3.125 mg PO BID-W/MEALS #60 tab 10/12/19 amLODIPine [Norvasc] 10 mg PO DAILY #30 tab 10/12/19 Allergies Allergy/AdvReac Type Severity Reaction Status Date / Time No Known Allergies Allergy Verified 11/30/19 15:25 Review of Systems ROS Other: All systems not noted in ROS Statement are negative. <Leodan Oakley - Last Filed: 11/30/19 15:57> ROS Other: All systems not noted in ROS Statement are negative. <Gustavo Staples - Last Filed: 11/30/19 18:51> ROS Statement: Those systems with pertinent positive or pertinent negative responses have been documented in the HPI. Past Medical History Past Medical History: Asthma, Hypertension Additional Past Medical History / Comment(s): ETOH abuse, pancreatitis, laryngitis History of Any Multi-Drug Resistant Organisms: None Reported Past Surgical History: No Surgical Hx Reported Past Anesthesia/Blood Transfusion Reactions: Unable to Obtain Additional Past Anesthesia/Blood Transfusion Reaction / Comment(s): Pt has never had surgery Past Psychological History: Anxiety Smoking Status: Current every day smoker Past Alcohol Use History: Abuse, Daily, Heavy Past Drug Use History: Marijuana - Past Family History Mother Family Medical History: Rheumatoid Arthritis (RA) Father Family Medical History: Asthma Additional Family Medical History / Comment(s): Father of an asthma attack which cause a cardiac arrest. <Leodan Oakley - Last Filed: 11/30/19 15:57> General Exam Limitations: no limitations General appearance: alert, in no apparent distress Head exam: Present: atraumatic, normocephalic, normal inspection Eye exam: Present: normal appearance, PERRL, EOMI. Absent: scleral icterus, conjunctival injection, periorbital swelling ENT exam: Present: normal exam, mucous membranes moist Neck exam: Present: normal inspection. Absent: tenderness, meningismus, lymphadenopathy Respiratory exam: Present: normal lung sounds bilaterally. Absent: respiratory distress, wheezes, rales, rhonchi, stridor Cardiovascular Exam: Present: normal rhythm, tachycardia, normal heart sounds. Absent: systolic murmur, diastolic murmur, rubs, gallop, clicks GI/Abdominal exam: Present: soft, tenderness, normal bowel sounds. Absent: distended, guarding, rebound, rigid Neurological exam: Present: alert, oriented X3, CN II-XII intact Skin exam: Present: warm, dry, intact, normal color. Absent: rash <Leodan Oakley - Last Filed: 11/30/19 15:57> Course Vital Signs 11/30/19 15:18 Temperature 98.2 F Pulse Rate 113 H Respiratory 22 Rate Blood Pressure 154/74 O2 Sat by Pulse 99 Oximetry Medical Decision Making - Lab Data Result diagrams: 11/30/19 15:57 11/30/19 15:57 <Gustavo Staples - Last Filed: 11/30/19 18:51> - Medical Decision Making 39 male seen by psychiatry, patient will be transferred inpatient psychiatric treatment (Gustavo Staples) - Lab Data Lab Results 11/30/19 11/30/19 11/30/19 Range/Units 15:57 15:57 15:57 WBC 5.9 (3.8-10.6) k/uL RBC 4.80 (4.30-5.90) m/uL Hgb 17.0 (13.0-17.5) gm/dL Hct 47.0 (39.0-53.0) % MCV 97.8 (80.0-100.0) fL MCH 35.4 H (25.0-35.0) pg MCHC 36.2 (31.0-37.0) g/dL RDW 11.7 (11.5-15.5) % Plt Count 167 (150-450) k/uL Neutrophils % 65 % Lymphocytes % 22 % Monocytes % 6 % Eosinophils % 3 % Basophils % 1 % Neutrophils # 3.9 (1.3-7.7) k/uL Lymphocytes # 1.3 (1.0-4.8) k/uL Monocytes # 0.4 (0-1.0) k/uL Eosinophils # 0.2 (0-0.7) k/uL Basophils # 0.1 (0-0.2) k/uL Sodium 140 (137-145) mmol/L Potassium 3.7 (3.5-5.1) mmol/L Chloride 105 (98-107) mmol/L Carbon Dioxide 23 (22-30) mmol/L Anion Gap 12 mmol/L BUN 16 (9-20) mg/dL Creatinine 0.83 (0.66-1.25) mg/dL Est GFR (CKD-EPI)AfAm >90 (>60 ml/min/1.73 sqM) Est GFR (CKD-EPI)NonAf >90 (>60 ml/min/1.73 sqM) Glucose 107 H (74-99) mg/dL Calcium 9.4 (8.4-10.2) mg/dL Magnesium 1.9 (1.6-2.3) mg/dL Total Bilirubin 0.8 (0.2-1.3) mg/dL AST 91 H (17-59) U/L ALT 96 H (4-49) U/L Alkaline Phosphatase 41 (38-126) U/L Total Protein 7.1 (6.3-8.2) g/dL Albumin 4.5 (3.5-5.0) g/dL Lipase 478 H (23-300) U/L Urine Opiates Screen Detected H (NotDetected) Ur Oxycodone Screen Not Detected (NotDetected) Urine Methadone Screen Not Detected (NotDetected) Ur Propoxyphene Screen Not Detected (NotDetected) Ur Barbiturates Screen Not Detected (NotDetected) U Tricyclic Antidepress Not Detected (NotDetected) Ur Phencyclidine Scrn Not Detected (NotDetected) Ur Amphetamines Screen Not Detected (NotDetected) U Methamphetamines Scrn Not Detected (NotDetected) U Benzodiazepines Scrn Not Detected (NotDetected) Urine Cocaine Screen Not Detected (NotDetected) U Marijuana (THC) Screen Detected H (NotDetected) Disposition <Leodan Oakley M - Last Filed: 11/30/19 15:57> Is patient prescribed a controlled substance at d/c from ED?: No <Gustavo Staples - Last Filed: 11/30/19 18:51> Clinical Impression: Alcohol abuse, Tobacco abuse, Depression, Suicidal ideation Disposition: TRANSFER TO PSYCH HOSP/UNIT Condition: Fair Referrals: None,Stated [Primary Care Provider] - 1-2 days
[2019-11-30 16:10] LABS: Basophils # (A) 0.1 k/uL (0-0.2); Basophils % (A) 1 %; Eosinophils # (A) 0.2 k/uL (0-0.7); Eosinophils % (A) 3 %; Lymphocytes # (A) 1.3 k/uL (1.0-4.8); Lymphocytes % (A) 22 %; MCH 35.4 pg (25.0-35.0); MCHC 36.2 g/dL (31.0-37.0); MCV 97.8 fL (80.0-100.0); Mean Platelet Volume 6.9; Monocytes # (A) 0.4 k/uL (0-1.0); Monocytes % (A) 6 %; Neutrophils # (A) 3.9 k/uL (1.3-7.7); Neutrophils % (A) 65 %; Platelet Count 167 k/uL (150-450); RDW 11.7 % (11.5-15.5); WBC 5.9 k/uL (3.8-10.6)
[2019-11-30 16:20] LABS: ALT 96 U/L (4-49); AST 91 U/L (17-59); African American GFR (CKD) >90 (>60 ml/min/1.73 sqM); Albumin 4.5 g/dL (3.5-5.0); Alkaline Phosphatase 41 U/L (38-126); Anion Gap 12 mmol/L; Blood Urea Nitrogen 16 mg/dL (9-20); Calcium 9.4 mg/dL (8.4-10.2); Carbon Dioxide 23 mmol/L (22-30); Chloride 105 mmol/L (98-107); Glucose 107 mg/dL (74-99); Magnesium 1.9 mg/dL (1.6-2.3); Non-African American GFR(CKD) >90 (>60 ml/min/1.73 sqM); Potassium 3.7 mmol/L (3.5-5.1); Sodium 140 mmol/L (137-145); Total Bilirubin 0.8 mg/dL (0.2-1.3); Total Protein 7.1 g/dL (6.3-8.2)
[2019-11-30 16:35] LABS: Amphetamine Screen,Urine Not Detected (NotDetected); Barbiturate Screen,Urine Not Detected (NotDetected); Benzodiazepines Screen,Urine Not Detected (NotDetected); Cocaine Screen,Urine Not Detected (NotDetected); Methadone Screen, Urine Not Detected (NotDetected); Opiate Screen,Urine Detected (NotDetected); Oxycodone Screen, Urine Not Detected (NotDetected); Phencyclidine Screen,Urine Not Detected (NotDetected); Tricyclic Antidepressant,Urine Not Detected (NotDetected); Urn Cannabinoid Scrn Detected (NotDetected)
[2019-11-30] MEDS ORDERED: MAGNESIUM HYDROXIDE 2,400 MG/10 ML CUP PO PRN (19:50)
[2019-11-30] MEDS ORDERED: ZIPRASIDONE 20 MG VIAL IM PRN (19:50)
[2019-11-30] MEDS ORDERED: LORazepam 2 MG/ML INJ IM PRN (19:54)
[2019-11-30] MEDS: LORazepam 1 MG TAB PO PRN (20:13)
[2019-11-30] MEDS: ACETAMINOPHEN TAB 325 MG TAB PO PRN (21:46)
[2019-11-30] MEDS: OLANZapine ODT 5 MG TAB PO PRN (23:16)
[2019-11-30] MEDS: NICOTINE 14MG/24HR PATCH TRANSDERM SCH (23:18)
[2019-12-01] MEDS ORDERED: LORazepam 1 MG TAB PO STA (01:21)
[2019-12-01] MEDS ORDERED: IBUPROFEN 400 MG TAB PO STA (01:21)
--- NOTE | 2019-12-01 01:22 | P.CONS ---
History of Present Illness - Reason for Consult Consult date: 12/01/19 - History of Present Illness The patient is a 39-year-old male with a PMH of alcohol abuse, multiple episodes of alcoholic pancreatitis, tobacco abuse, and hypertension who presented to the ED with complaints of depression and suicidal ideation. The patient was recently admitted to the medicine service for alcoholic pancreatitis. Patient had subsequently eloped with IV in place. The police was contacted though was not able to find the patient. The patient now presented to the ED on his own accord. The patient underwent an extensive evaluation in the emergency room with lipase level of 478, AST 91, ALT 96, glucose 107, WBC count 5.9, hemoglobin 17, platelets 167, urine toxicology positive for marijuana and opiates. The patient reports that after he left the hospital, he took out his IV and went right back to drinking. He attempted to check himself into [facility] but was unable to since he did not have his prescription patient on him physically at the time. He thereby became very disheartened because of his alcohol abuse and decided to come to the ED. He reports mild continued epigastric abdominal pain. Denied any additional complaints of chest pain, shortness of breath, nausea, vomiting, diaphoresis, or dizziness. Review of Systems Pertinent positives and negatives as discussed in HPI, a complete review of systems was performed and all other systems are negative. Past Medical History Past Medical History: Asthma, Hypertension Additional Past Medical History / Comment(s): ETOH abuse, pancreatitis, laryngitis History of Any Multi-Drug Resistant Organisms: None Reported Past Surgical History: No Surgical Hx Reported Past Anesthesia/Blood Transfusion Reactions: Unable to Obtain Additional Past Anesthesia/Blood Transfusion Reaction / Comm: Pt has never had surgery Smoking Status: Current every day smoker - Past Family History Mother Family Medical History: Rheumatoid Arthritis (RA) Father Family Medical History: Asthma, Myocardial Infarction ([place]) Additional Family Medical History / Comment(s): Father of an asthma attack which caused a cardiac arrest. Pt. reports his father was 56 years old when he passed from an [place]. Medications and Allergies Home Medications Medication Instructions Recorded Confirmed Type Carvedilol [Coreg] 3.125 mg PO BID-W/MEALS #60 tab 10/12/19 11/30/19 Rx amLODIPine [Norvasc] 10 mg PO DAILY #30 tab 10/12/19 11/30/19 Rx Allergies Allergy/AdvReac Type Severity Reaction Status Date / Time No Known Allergies Allergy Verified 11/30/19 20:06 Physical Exam Vitals: Vital Signs Temp Pulse Pulse Resp BP BP Pulse Ox 11/30/19 21:15 100 144/95 11/30/19 20:09 99.3 F 108 H 18 166/93 11/30/19 15:18 98.2 F 113 H 22 154/74 99 Intake and Output 11/30/19 11/30/19 12/01/19 14:59 22:59 06:59 Other: Weight 103.873 kg General: non toxic, no distress, appears at stated age, obese Derm: no unusual rashes/lesions no unusual ecchymoses, warm, dry Head: atraumatic, normocephalic, symmetric Eyes: EOMI, no lid lag, anicteric sclera, pupils equal round reactive to light ENT: Nose and ears atraumatic, no thrush, no pharyngeal erythema Neck: No thyromegaly, no cervical lymphadenopathy, trachea midline, supple Mouth: no lip lesion, mucus membranes moist Cardiovascular: S1S2 reg, no murmur, positive posterior tibial pulse bilateral, no edema, capillary refill less than 2 seconds Lungs: CTA bilateral, no rhonchi, no rales , no accessory muscle use Abdominal: soft, mild epigastric tenderness to palpation, no guarding, no appreciable organomegaly, normal bowel sounds Ext: no gross muscle atrophy, muscle strength 5 out of 5 in all 4 extremities grossly, no contractures, Neuro: CN II-XI grossly intact, light touch intact all 4 extremities, finger to nose within normal limits, Psych: Alert, oriented, normal affect Results CBC & Chem 7: 11/30/19 15:57 11/30/19 15:57 Labs: Abnormal Lab Results - Last 24 Hours (Table) 11/30/19 11/30/19 11/30/19 Range/Units 15:57 15:57 15:57 MCH 35.4 H (25.0-35.0) pg Glucose 107 H (74-99) mg/dL AST 91 H (17-59) U/L ALT 96 H (4-49) U/L Lipase 478 H (23-300) U/L Urine Opiates Screen Detected H (NotDetected) U Marijuana (THC) Screen Detected H (NotDetected) Assessment and Plan Plan: EtOH abuse -Monitor for withdrawals -Thiamine, Folate, MV -Start Librium 25 mg po TID -Encourage oral fluid intake -Monitor electrolytes Alcoholic pancreatitis -Improved lipase from previous visit -Oral hydration -Monitor Lipase -Pain control Abnormal LFTs -Due to EtOH abuse -Monitor for now Tobacco abuse -Nicotine patch HTN -C/w Norvasc and Coreg
[2019-12-01] MEDS: amLODIPine 10 MG TAB PO SCH (08:55)
[2019-12-01] MEDS: CARVEDILOL 3.125 MG TAB PO SCH ×2 (08:55→18:33)
[2019-12-01] MEDS: NICOTINE 14MG/24HR PATCH TRANSDERM SCH (08:56)
[2019-12-01] MEDS: MULTIVITAMINS, THERA 1 EACH TAB PO SCH (08:56)
[2019-12-01] MEDS: FOLIC ACID 1 MG TAB PO SCH (08:56)
[2019-12-01] MEDS: THIAMINE 100 MG TAB PO SCH (08:56)
[2019-12-01] MEDS ORDERED: chlordiazePOXIDE 25 MG CAP PO SCH (09:00)
[2019-12-01] MEDS ORDERED: NICOTINE 14MG/24HR PATCH TRANSDERM SCH (09:00)
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
[2019-12-01] MEDS: LORazepam 1 MG TAB PO PRN ×2 (15:00→23:34)
[2019-12-01] MEDS: NICOTINE 21MG/24HR PATCH TRANSDERM SCH (15:13)
[2019-12-01] MEDS: OLANZapine ODT 5 MG TAB PO PRN (20:58)
[2019-12-01] MEDS: ACETAMINOPHEN TAB 325 MG TAB PO PRN (23:34)
[2019-12-02 07:57] LABS: ALT 74 U/L (4-49); AST 54 U/L (17-59); African American GFR (CKD) >90 (>60 ml/min/1.73 sqM); Albumin 3.9 g/dL (3.5-5.0); Alkaline Phosphatase 34 U/L (38-126); Anion Gap 4 mmol/L; Blood Urea Nitrogen 14 mg/dL (9-20); Calcium 8.8 mg/dL (8.4-10.2); Carbon Dioxide 30 mmol/L (22-30); Chloride 104 mmol/L (98-107); Cholesterol 207 mg/dL (<200); Glucose 99 mg/dL (74-99); HDL Cholesterol 42 mg/dL (40-60); LDL Cholesterol,Calculated 138 mg/dL (0-99); Non-African American GFR(CKD) >90 (>60 ml/min/1.73 sqM); Potassium 3.7 mmol/L (3.5-5.1); Sodium 138 mmol/L (137-145); Total Bilirubin 0.9 mg/dL (0.2-1.3); Total Protein 6.3 g/dL (6.3-8.2); Triglycerides 134 mg/dL (<150)
[2019-12-02] MEDS: CARVEDILOL 3.125 MG TAB PO SCH ×3 (08:06→17:07)
[2019-12-02] MEDS: THIAMINE 100 MG TAB PO SCH (08:06)
[2019-12-02] MEDS: NICOTINE 21MG/24HR PATCH TRANSDERM SCH (08:06)
[2019-12-02] MEDS: MULTIVITAMINS, THERA 1 EACH TAB PO SCH (08:06)
[2019-12-02] MEDS: amLODIPine 10 MG TAB PO SCH (08:06)
[2019-12-02] MEDS: LORazepam 1 MG TAB PO PRN ×3 (08:06→23:47)
[2019-12-02] MEDS: FOLIC ACID 1 MG TAB PO SCH (08:06)
[2019-12-02] MEDS: OLANZapine ODT 5 MG TAB PO PRN ×2 (08:36→22:09)
--- NOTE | 2019-12-02 13:02 | P.PN ---
Progress Note - Text Progress Note Date: 12/02/19 Subjective: Patient was seen today as a cross coverage for . The patient was evaluated, chart reviewed, case discussed with the treatment team. Patient reported better sleep last night. Appetite was reported as "It could be better". Patient has been going to some groups and other unit activities. The patient agreed to start on psychiatric medication Abilify, and he requested to start on Elavil as an antidepressant because he claimed that had prior successful experience with Elavil. Discussed with the patient to start Abilify today for mood stabilization and he would be followed by another psychiatrist tomorrow who could make a decision about starting the antidepressant. Patient reports relatively has better mood today but he continued to have bouts of feeling depressed with outbursts of anger. He denies any psychotic or manic symptoms. Objective: Vitals has been reviewed. MENTAL STATUS EVALUATION: Appearance: Appears stated age, fairly groomed, average body built, and no specific features. Gait/ posture: Steady gait, normal arm swinging, no abnormal movements, with relaxed posture. Attitude and Behavior: engaged, related to the interviewer in socially accepted manner, fair eye contact during course of interview. Motor Activity: normal psychomotor activity. Speech: spontaneous, normal rate, rhythm, and articulation. normal volume, not pressured. Language: Articulating, naming objects and repeat phrases. Mood: depressed Affect: Restricted. Thought process: linear, goal directed. Association: intact. Thought content: no delusions, reports intermittent suicidal thoughts, reports vague homicidal thoughts, Denies intentions, or plans. Perception: Denies any current hallucinations. Alertness: No impairment. Concentration: Impaired. Orientation: Oriented to time, place, person and situation. Insight regarding psychiatric condition: fair Judgment regarding daily activities and social situation: fair Impulse control: fair Assessment: Unspecified mood disorder. Rule out major depressive disorder, recurrent severe without psychosis Generalized anxiety disorder. Alcohol use disorder, severe Cannabis use disorder,mild Hypertension GERD Plan: Continue the patient inpatient for safety. Continue the patient under 15 minutes safe check for safety. Psych education regarding his daignoses, and treatment option. The patient will also be provided with individual therapy, group therapy, substance abuse counseling, gain insight, and coping skills. Consider medical consultation if any acute medical issue arise. Medications: Continue CIWA monitoring for alcohol withdrawal symptoms and Ativan PRN based on CIWA score. Start Abilify 2 mg daily for 2 days then 5 mg daily for mood stabilization. The patient will be assessed on daily basis for his depression, suicidal ideation, and will be discharged back to his outpatient mental health provider upon stabilization.
[2019-12-02] MEDS: ARIPiprazole 2 MG TAB PO SCH (13:33)
[2019-12-02] MEDS ORDERED: IBUPROFEN 600 MG TAB PO PRN (20:21)
[2019-12-02] MEDS ORDERED: BENZOCAINE/MENTHOL LOZENG 1 EACH LOZENGE MUCOUS MEM PRN (20:22)
[2019-12-03] MEDS: LORazepam 1 MG TAB PO PRN ×2 (06:53→20:55)
[2019-12-03] MEDS: NICOTINE 21MG/24HR PATCH TRANSDERM SCH (06:53)
[2019-12-03] MEDS: MULTIVITAMINS, THERA 1 EACH TAB PO SCH (08:45)
[2019-12-03] MEDS: THIAMINE 100 MG TAB PO SCH (08:45)
[2019-12-03] MEDS: FOLIC ACID 1 MG TAB PO SCH (08:45)
[2019-12-03] MEDS: amLODIPine 10 MG TAB PO SCH (08:46)
[2019-12-03] MEDS: ARIPiprazole 2 MG TAB PO SCH ×3 (08:46→10:05)
[2019-12-03 13:07] LABS: Hemoglobin A1C 5.1 % (4.0-6.0)
--- NOTE | 2019-12-03 13:10 | P.PN ---
Progress Note - Text Progress Note Date: 12/03/19 Interval History: Patient was seen wandering the hallways and was directable and agreeable speech rate in the office. Patient states that he is feeling anxious today and feels that he is feeling "uneasy" and relates this to his alcohol withdrawals he states that usually gets the worst withdrawals and day 5 and 6 after stopping alcohol. He states that he does have some auditory hallucinations however does not elaborate much on them. Patient described the events that led him to come in the hospital and spoke about his complications on the medical floor with his pancreatitis. He claims that he tried to go to [place] after being discharged from medical floors however states that there is a "complication with my admission" and went back home to start drinking. Patient claims that now he will be ready to go back to rehab however would like to go to a different one if he has that option. Patient states that his mood is gradually improving. He states that he has felt agitated and anxious. He states that he has poor sleep. At this time patient denies any suicidal or homical ideations, intent or plan. Patient denies any visual hallucinations and denies any paranoia or delusions. Patient denies any side effects from the medications and has been compliant with meds. Mental Status Exam: General Appearance: Patient appears to be stated age is alert, directable and attempts to cooperate. Patient is wearing street clothing and has improving hygiene. Behavior: Patient is anxiously seated without any agitated behavior. Speech: Patient's speech is fluent and nonpressured. Talkative. Mood/Affect: Mood is improving mildly however reports anxiety, affect is congruent and constricted. Suicidality/Homicidality: Patient denies having any suicidal or homicidal ideation intent or plan. Perceptions: Patient denies any visual hallucinations and admits to some auditory hallucinations which are not distressing to him. Though content/process: There is no evidence of any delusional thought content and thought process is linear and goal-directed. Memory and concentration: AOX3, grossly intact for the purposes of this session Judgment and insight: Improving. Assessment Unspecified mood disorder, rule out bipolar disorder versus major depressive disorder. Generalized anxiety disorder Alcohol use disorder, severe currently withdrawal Cannabis use disorder, mild Nicotine dependence Plan: -Patient continues to meet criteria for inpatient psychiatric admission for sym ptom stabilization and safety. Patient has signed adult voluntary form and medication consent and was placed in patient's chart. -Medications: Will increase Abilify to 5 mg daily for mood stabilization for tomorrow, start trazodone 50 mg daily at bedtime for sleep/mood. Vistaril 25 mg when necessary for anxiety. -When necessary Ativan for agitation/aggression. -MVM, thiamine and FA as vitamin supplementation. -[facility] protocol for alcohol withdrawal with Ativan when necessary. Vital signs reviewed -NRT - nicotine patch -SW on board for discharge planning. Patient states that he is agreeable to go to rehab upon discharge. Likely discharge in 1-2 days.
[2019-12-03] MEDS: CARVEDILOL 3.125 MG TAB PO SCH (17:51)
[2019-12-03] MEDS: hydrOXYzine PAMOATE 25 MG CAP PO PRN (17:57)
[2019-12-03] MEDS ORDERED: traZODone HCL 50 MG TAB PO SCH (21:00)
[2019-12-04] MEDS: LORazepam 1 MG TAB PO PRN ×2 (07:39→20:11)
[2019-12-04] MEDS: hydrOXYzine PAMOATE 25 MG CAP PO PRN ×3 (07:39→23:03)
[2019-12-04] MEDS: FOLIC ACID 1 MG TAB PO SCH (07:42)
[2019-12-04] MEDS: MULTIVITAMINS, THERA 1 EACH TAB PO SCH (07:42)
[2019-12-04] MEDS: CARVEDILOL 3.125 MG TAB PO SCH ×2 (07:43→17:58)
[2019-12-04] MEDS: THIAMINE 100 MG TAB PO SCH (07:43)
[2019-12-04] MEDS: amLODIPine 10 MG TAB PO SCH (07:43)
[2019-12-04] MEDS: ARIPiprazole 5 MG TAB PO SCH (07:43)
[2019-12-04] MEDS: NICOTINE 21MG/24HR PATCH TRANSDERM SCH (07:43)
--- NOTE | 2019-12-04 09:55 | P.PN ---
Progress Note - Text Progress Note Date: 12/04/19 Interval History: Patient was seen attending morning groups and was directable and agreeable speak with real estate underwriter in the office. Patient states that he is feeling mildly better today however states that he only slept 3-4 hours last night. He states that he had some minor visual hallucinations and states that it is common for him in the stages of withdrawal from alcohol. He denies any other withdrawal symptoms including tremor palpitations. Vital signs were reviewed patient was tachycardic earlier today. He states that his depression has been mildly improving and was requesting to have an increase in his trazodone. He also states that he is feeling less emotionally labile and less irritable on the Abilify. Patient states that he thought about going to rehab however states that it is not "financially plausible" and states that she would like to get back to work and would like to do outpatient substance use treatment along with AA meetings in the community as he says that one of his friends regularly goes. He states that he has felt agitated and anxious and received 2 doses of Ativan since yesterday. At this time patient denies any suicidal or homical ideations, intent or plan. Patient denies any visual hallucinations and denies any paranoia or delusions. Patient denies any side effects from the medications and has been compliant with meds. Mental Status Exam: General Appearance: Patient appears to be stated age is alert, directable and attempts to cooperate. Patient is wearing street clothing and has improving hygiene. Behavior: Patient is anxiously seated without any agitated behavior. Speech: Patient's speech is fluent and nonpressured. Talkative. Mood/Affect: Mood is improving mildly however reports anxiety which is improving, affect is congruent and constricted. Suicidality/Homicidality: Patient denies having any suicidal or homicidal ideation intent or plan. Perceptions: Patient admitted to some minor visual hallucinations last night however were not distressing to him. Denies any auditory hallucinations. Though content/process: There is no evidence of any delusional thought content and thought process is tangential/circumstantial. Rambles at times. Memory and concentration: AOX3, grossly intact for the purposes of this session Judgment and insight: Improving mildly. Assessment Unspecified mood disorder, rule out bipolar disorder versus major depressive disorder. Generalized anxiety disorder Alcohol use disorder, severe currently withdrawal Cannabis use disorder, mild Nicotine dependence Plan: -Patient continues to meet criteria for inpatient psychiatric admission for symptom stabilization and safety. Patient has signed adult voluntary form and medication consent and was placed in patient's chart. -Medications: Will continue with Abilify to 5 mg daily for mood stabilization for tomorrow, increased trazodone 100 mg daily at bedtime for sleep/mood. Continue with Vistaril 25 mg when necessary for anxiety. -When necessary Ativan for agitation/aggression. -MVM, thiamine and FA as vitamin supplementation. -[facility] protocol for alcohol withdrawal with Ativan when necessary. Vital signs reviewed, patient received 2 doses of Ativan since yesterday. Was tachycardic earlier today. -NRT - nicotine patch -SW on board for discharge planning. Patient states that he does not want to go to rehab at this time and would rather go to outpatient substance abuse treatment and do AA meetings in the community. Likely discharge tomorrow.
[2019-12-04] MEDS: MAG HYDROX/AL HYDROX/SIMETH 30 ML CUP PO PRN ×3 (12:07→20:45)
[2019-12-04] MEDS: traZODone HCL 100 MG TAB PO SCH ×2 (20:45→21:59)
[2019-12-05 06:48] VITALS: TEMP 98.2
[2019-12-05] MEDS: NICOTINE 21MG/24HR PATCH TRANSDERM SCH (08:28)
[2019-12-05] MEDS: THIAMINE 100 MG TAB PO SCH (08:29)
[2019-12-05] MEDS: FOLIC ACID 1 MG TAB PO SCH (08:29)
[2019-12-05] MEDS: ARIPiprazole 5 MG TAB PO SCH (08:29)
[2019-12-05] MEDS: LORazepam 1 MG TAB PO PRN (08:29)
[2019-12-05] MEDS: amLODIPine 10 MG TAB PO SCH (08:29)
[2019-12-05] MEDS: MULTIVITAMINS, THERA 1 EACH TAB PO SCH (08:29)
[2019-12-05] MEDS: CARVEDILOL 3.125 MG TAB PO SCH (08:29)
[2019-12-05] MEDS ORDERED: FAMOTIDINE 20 MG TAB PO STA (10:19)
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
[2019-12-05 11:26] VITALS: BP 156/94; PULSE 104; RESP 20
== END 2019-12-05 12:35 | disposition home or self-care (01) | DRG 883 ==
LOC: EC 15:06 → 3MHU 19:07
PROVIDERS: ADMIT Psychiatry & Neurology Psychiatry; ATTEND Psychiatry & Neurology Psychiatry
DX: F34.0 Cyclothymic disorder (principal); F10.99 Alcohol use, unspecified with unspecified alcohol-induced disorder; R45.851 Suicidal ideations; F12.99 Cannabis use, unspecified with unspecified cannabis-induced disorder; F32.9 Major depressive disorder, single episode, unspecified; F17.200 Nicotine dependence, unspecified, uncomplicated; F41.0 Panic disorder [episodic paroxysmal anxiety]; F41.1 Generalized anxiety disorder; I10 Essential (primary) hypertension; J45.909 Unspecified asthma, uncomplicated; K21.9 Gastro-esophageal reflux disease without esophagitis; Z59.0 Homelessness; Z79.899 Other long term (current) drug therapy; Z82.41 Family history of sudden cardiac death; Z82.49 Family history of ischemic heart disease and other diseases of the circulatory system; Z82.5 Family history of asthma and other chronic lower respiratory diseases; Z91.5 Personal history of self-harm
CPT/HCPCS: 36415; 80053; 80061; 80306; 82075; 83036; 83690; 83735; 84443; 85025; 99285

== ENCOUNTER 2020-03-29 20:13 | Emergency (ER) | payer MEDICAID, OTHER ==
--- NOTE | 2020-03-29 20:59 | ED ---
Recheck HPI - General Chief Complaint: Recheck/Abnormal Lab/Rx Stated Complaint: Wants STD testing Time Seen by Provider: 03/29/20 20:26 Source: patient Mode of arrival: ambulatory Limitations: no limitations - History of Present Illness Initial Comments: Patient is a 39-year-old male presenting to the emergency department wanting STD testing. He states he recently found out his long-time girlfriend was not honest with him and cheating on him. He is scared about her history. Patient denies any symptoms at this time. He denies fever, chills, abdominal pain, nausea, vomiting, dysuria, hematuria, penile discharge. He states he does have a history of herpes type II. He does admit to abusing alcohol and appears intoxicated at this time. He is anxious, crying, combative. He has no further complaints. - Related Data Previous Rx's Medication Instructions Recorded Carvedilol [Coreg] 3.125 mg PO BID-W/MEALS #60 tab 10/12/19 ARIPiprazole [Abilify] 5 mg PO DAILY 28 Days tab 12/05/19 Acetaminophen Tab [Tylenol] 650 mg PO Q4HR PRN tab 12/05/19 Famotidine [Pepcid] 40 mg PO ONCE tab 12/05/19 Folic Acid 1 mg PO DAILY 28 Days tab 12/05/19 Multivitamins, Thera [Multivitamin 1 each PO DAILY 28 Days tab 12/05/19 (formulary)] Nicotine 21Mg/24Hr Patch [Habitrol] 1 patch TRANSDERM DAILY 14 Days 12/05/19 patch Thiamine [Vitamin B-1] 100 mg PO DAILY 28 Days tab 12/05/19 amLODIPine [Norvasc] 10 mg PO DAILY 28 Days #30 tab 12/05/19 hydrOXYzine PAMOATE [Vistaril] 25 mg PO BID PRN 28 Days cap 12/05/19 traZODone HCL [Desyrel] 100 mg PO HS 28 Days tab 12/05/19 Allergies Allergy/AdvReac Type Severity Reaction Status Date / Time No Known Allergies Allergy Verified 03/29/20 20:24 Review of Systems ROS Statement: Those systems with pertinent positive or pertinent negative responses have been documented in the HPI. ROS Other: All systems not noted in ROS Statement are negative. Past Medical History Past Medical History: Asthma, Hypertension Additional Past Medical History / Comment(s): ETOH abuse, pancreatitis, laryngitis History of Any Multi-Drug Resistant Organisms: None Reported Past Surgical History: No Surgical Hx Reported Past Anesthesia/Blood Transfusion Reactions: Unable to Obtain Additional Past Anesthesia/Blood Transfusion Reaction / Comment(s): Pt has never had surgery Past Psychological History: Anxiety Smoking Status: Current every day smoker Past Alcohol Use History: Abuse, Daily, Heavy Past Drug Use History: Marijuana - Past Family History Mother Family Medical History: Rheumatoid Arthritis ([place]) Father Family Medical History: Asthma, Myocardial Infarction ([place]) Additional Family Medical History / Comment(s): Father of an asthma attack which caused a cardiac arrest. Pt. reports his father was 56 years old when he passed from an [place]. General Exam - General Exam Comments Initial Comments: GENERAL: Patient appears upset, may be intoxicated and in no acute distress. HEAD: Atraumatic, normocephalic. EYES: Pupils equal round and reactive to light, extraocular movements intact, sclera anicteric, conjunctiva are normal. ENT: TMs normal, nares patent, oropharynx clear without exudates. Moist mucous membranes. NECK: Normal range of motion, supple without lymphadenopathy or JVD. LUNGS: Breath sounds clear to auscultation bilaterally and equal. No wheezes rales or rhonchi. HEART: Regular rate and rhythm without murmurs, rubs or gallops. ABDOMEN: Soft, nontender, normoactive bowel sounds. No guarding, no rebound. No masses appreciated. : Deferred EXTREMITIES: Normal range of motion, no pitting or edema. No clubbing or cyanosis. NEUROLOGICAL: Normal speech, normal gait. PSYCH: Anxious, teary eyed, upset. SKIN: Warm, Dry, normal turgor, no rashes or lesions noted. Limitations: no limitations Course Vital Signs 03/29/20 03/29/20 20:20 21:44 Temperature 97.6 F 98.2 F Pulse Rate 92 91 Respiratory 20 16 Rate Blood Pressure 151/93 148/87 O2 Sat by Pulse 98 99 Oximetry Medical Decision Making - Medical Decision Making Patient is a 39-year-old male here wanting STD testing. He has no symptoms or no complaints at this time. He appears to be intoxicated and is upset his girlfriend was cheating on him. I did order a UA as well as chlamydia, gonorrhea, syphilis testing. UA is normal today at discussed with patient that there is any abnormal findings they will call him in a few days. Patient stable for discharge at this time. He does have a ride coming to get him. He is in agreement with this plan of care. I discussed with patient that he needs to follow-up with the health department or his PCP for further testing. - Lab Data Lab Results 03/29/20 Range/Units 20:58 Urine Color Light Yellow Urine Appearance Clear (Clear) Urine pH 6.0 (5.0-8.0) Ur Specific Galliano 1.003 (1.001-1.035) Urine Protein Negative (Negative) Urine Glucose (UA) Negative (Negative) Urine Ketones Negative (Negative) Urine Blood Negative (Negative) Urine Nitrite Negative (Negative) Urine Bilirubin Negative (Negative) Urine Urobilinogen <2.0 (<2.0) mg/dL Ur Leukocyte Esterase Negative (Negative) Disposition Clinical Impression: Concern about STD in male without diagnosis Disposition: HOME SELF-CARE Condition: Stable Instructions (If sedation given, give patient instructions): Safe Sex (ED) Additional Instructions: Please return to the Emergency Department if symptoms worsen or any other concerns. Follow-up with PCP. Is patient prescribed a controlled substance at d/c from ED?: No Referrals: Monica Lobato MD [Primary Care Provider] - 1-2 days
[2020-03-29 21:08] LABS: Appearance,Urine Clear (Clear); Bilirubin,Urine Negative (Negative); Blood,Urine Negative (Negative); Color,Urine Light Yellow; Glucose,Urine (UA) Negative (Negative); Ketones,Urine Negative (Negative); Leukocyte Esterase,Urine Negative (Negative); Nitrite,Urine Negative (Negative); Protein,Urine Negative (Negative); Specific Gravity,Urine 1.003 (1.001-1.035); Urobilinogen,Urine <2.0 mg/dL (<2.0)
[2020-03-29 21:45] VITALS: BP 148/87; PULSE 91; RESP 16; TEMP 98.2
[2020-04-01 15:56] LABS: C. trachomatis,PCR Negative (Neg,Equiv); Chlamydia trachomatis Source Urine; N. gonorrhoeae,PCR Negative (Neg,Equiv); Neisseria Source Urine
== END 2020-03-29 21:44 | disposition home or self-care (01) ==
LOC: EC 20:13
DX: Z11.3 Encounter for screening for infections with a predominantly sexual mode of transmission (principal); F10.129 Alcohol abuse with intoxication, unspecified; F17.200 Nicotine dependence, unspecified, uncomplicated
CPT/HCPCS: 36415; 81003; 86780; 87491; 87591; 99283